=== PATIENT | female | born 1990 | race Caucasian/White ===

== ENCOUNTER 2018-05-09 13:48 | Inpatient (IN) | payer OTHER ==
[2018-05-09] MEDS ORDERED: Sodium Chloride 0.9% 1,000 ML IV SCH ×2 (15:15→17:30)
--- NOTE | 2018-05-09 15:17 | EDM.PDOC ---
ED HPI GENERAL MEDICAL PROBLEM - General Chief Complaint: Fever Stated Complaint: BACK PAIN POST DELIVERY Time Seen by Provider: 05/09/18 14:11 Source of Information: Reports: Patient, RN Notes Reviewed - History of Present Illness INITIAL COMMENTS - FREE TEXT/NARRATIVE: 27-year-old female comes in with fever, chills that started today about 5 hours ago. She is 4 days , discharge home with her baby 2 days ago. She states the delivery was "long" but otherwise went okay. she did develop some low back pain last evening that continues this today. She states that she does not have much control over her bladder, that when she feels the need to void, stands up there is incontinence, unable to get to the bathroom without leakage. She believes her flow has been relatively normal, a couple of clots but nothing excessive. She does have some lower pelvic and abdominal discomfort but in her mind not unusual or excessive for just delivering a baby 4 days ago. She denies nasal or sinus congestion sore throat cough. 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: - Past Surgical History HEENT Surgical History: Reports: Oral Surgery Musculoskeletal Surgical History: Reports: Other (See Below) Social & Family History - Family History Family Medical History: Noncontributory - Tobacco Use Smoking Status *Q: Never Smoker Second Hand Smoke Exposure: No - Caffeine Use Caffeine Use: Reports: Coffee - Recreational Drug Use Recreational Drug Use: No ED ROS GENERAL - Review of Systems Review Of Systems: See Below Constitutional: Reports: Fever, Chills HEENT: Denies: Rhinitis, Sinus Problem, Throat Pain Respiratory: Denies: Shortness of Breath Cardiovascular: Denies: Chest Pain GI/Abdominal: Reports: Abdominal Pain (Mild lower mid and mid abdominal discomfort). Denies: Nausea, Vomiting : Reports: Frequency, Urgency, Other (Loss of control) Musculoskeletal: Reports: Back Pain Skin: Denies: Rash Neurological: Reports: Dizziness. Denies: Trouble Speaking, Difficulty Walking , Weakness ED EXAM, GENERAL - Physical Exam Exam: See Below General Appearance: Alert, No Apparent Distress Eye Exam: Bilateral Eye: PERRL Throat/Mouth: Normal Inspection, Normal Oropharynx Head: Atraumatic. No: Facial Swelling Neck: Supple, Full Range of Motion Respiratory/Chest: No Respiratory Distress, Lungs Clear, Normal Breath Sounds. No: Rhonchi, Wheezing Cardiovascular: Tachycardia GI/Abdominal: Soft, Tender (Very mild tenderness lower mid pelvis and abdomen). No: Guarding, Rebound Back Exam: CVA Tenderness (L), CVA Tenderness (R), Other (Mild bilat low back tenderness) Extremities: Normal Inspection. No: Pedal Edema, Leg Pain Neurological: Alert, Oriented, No Motor/Sensory Deficits Skin Exam: Warm, Dry, Normal Color Course - Vital Signs Last Recorded V/S: Last Vital Signs Temp 101.5 F H 05/09/18 16:00 Pulse 114 H 05/09/18 16:00 Resp 26 H 05/09/18 16:00 BP 111/62 05/09/18 16:00 Pulse Ox 99 05/09/18 16:00 - Orders/Labs/Meds Orders: Active Orders 24 hr Category Date Time Status Chest 1V Frontal [CR] Stat Exams 05/09/18 14:37 Taken CULTURE BLOOD [BC] Stat Lab 05/09/18 14:50 Received CULTURE BLOOD [BC] Stat Lab 05/09/18 15:25 Received CULTURE URINE [RM] Stat Lab 05/09/18 16:05 Received Sodium Chloride 0.9% [Normal Saline] 1,000 ml Med 05/09/18 15:15 Active IV ONETIME Sodium Chloride 0.9% [Normal Saline] 1,000 ml Med 05/09/18 17:30 Active IV ONETIME cefTRIAXone [Rocephin] 2 gm Med 05/09/18 15:30 Active Sodium Chloride 0.9% [Normal Saline] 100 ml IV Q24H Medication Orders Sodium Chloride (Normal Saline) 1,000 mls @ 999 mls/hr IV ONETIME DINO Last Admin: 05/09/18 15:35 Dose: 999 mls/hr Ceftriaxone Sodium 2 gm/ (Sodium Chloride) 100 mls @ 200 mls/hr IV Q24H DINO Last Admin: 05/09/18 15:35 Dose: 200 mls/hr Sodium Chloride (Normal Saline) 1,000 mls @ 999 mls/hr IV ONETIME DINO Last Admin: 05/09/18 17:25 Dose: 999 mls/hr Labs: Laboratory Tests 05/09/18 05/09/18 05/09/18 Range/Units 14:50 14:50 14:50 WBC 14.18 H (3.98-10.04) K/mm3 RBC 3.55 L (3.98-5.22) M/mm3 Hgb 10.2 L (11.2-15.7) gm/L Hct 31.6 L (34.1-44.9) % MCV 89.0 (79.4-94.8) fl MCH 28.7 (25.6-32.2) pg MCHC 32.3 (32.2-35.5) g/dl RDW Std Deviation 45.3 (36.4-46.3) fL Plt Count 320 (182-369) K/mm3 MPV 9.4 (9.4-12.3) fl Neutrophils % (Manual) 92 H (40-60) % Band Neutrophils % 0 (0-10) % Lymphocytes % (Manual) 6 L (20-40) % Atypical Lymphs % 0 % Monocytes % (Manual) 2 (2-10) % Eosinophils % (Manual) 0 L (0.7-5.8) % Basophils % (Manual) 0 L (0.1-1.2) Toxic Granulation 2+ moderate Platelet Estimate Adequate Plt Morphology Comment Normal Anisocytosis 1+ slight RBC Morph Comment Not Reportable Sodium 136 (136-145) mEq/L Potassium 3.2 L (3.5-5.1) mEq/L Chloride 101 (98-107) mEq/L Carbon Dioxide 21 (21-32) mEq/L Anion Gap 17.2 H (5-15) BUN 11 (7-18) mg/dL Creatinine 0.9 (0.55-1.02) mg/dL Est Cr Clr Drug Dosing 93.04 mL/min Estimated GFR (MDRD) > 60 (>60) mL/min BUN/Creatinine Ratio 12.2 L (14-18) Glucose 101 (74-106) mg/dL Lactic Acid 1.7 (0.4-2.0) mmol/L Calcium 9.0 (8.5-10.1) mg/dL Total Bilirubin 0.3 (0.2-1.0) mg/dL AST 23 (15-37) U/L ALT 26 (14-59) U/L Alkaline Phosphatase 129 H (46-116) U/L C-Reactive Protein 6.7 H* (<1.0) mg/dL Total Protein 7.2 (6.4-8.2) g/dl Albumin 2.6 L (3.4-5.0) g/dl Globulin 4.6 gm/dL Albumin/Globulin Ratio 0.6 L (1-2) Urine Color (Yellow) Urine Appearance (Clear) Urine pH (5.0-8.0) Ur Specific Bim (1.005-1.030) Urine Protein (Negative) Urine Glucose (UA) (Negative) Urine Ketones (Negative) Urine Occult Blood (Negative) Urine Nitrite (Negative) Urine Bilirubin (Negative) Urine Urobilinogen (0.2-1.0) Ur Leukocyte Esterase (Negative) Urine RBC (0-5) /hpf Urine WBC (0-5) /hpf Ur Epithelial Cells (0-5) /hpf Urine Bacteria (FEW) /hpf Urine Mucus (FEW) /hpf 05/09/18 Range/Units 16:05 WBC (3.98-10.04) K/mm3 RBC (3.98-5.22) M/mm3 Hgb (11.2-15.7) gm/L Hct (34.1-44.9) % MCV (79.4-94.8) fl MCH (25.6-32.2) pg MCHC (32.2-35.5) g/dl RDW Std Deviation (36.4-46.3) fL Plt Count (182-369) K/mm3 MPV (9.4-12.3) fl Neutrophils % (Manual) (40-60) % Band Neutrophils % (0-10) % Lymphocytes % (Manual) (20-40) % Atypical Lymphs % % Monocytes % (Manual) (2-10) % Eosinophils % (Manual) (0.7-5.8) % Basophils % (Manual) (0.1-1.2) Toxic Granulation Platelet Estimate Plt Morphology Comment Anisocytosis RBC Morph Comment Sodium (136-145) mEq/L Potassium (3.5-5.1) mEq/L Chloride (98-107) mEq/L Carbon Dioxide (21-32) mEq/L Anion Gap (5-15) BUN (7-18) mg/dL Creatinine (0.55-1.02) mg/dL Est Cr Clr Drug Dosing mL/min Estimated GFR (MDRD) (>60) mL/min BUN/Creatinine Ratio (14-18) Glucose (74-106) mg/dL Lactic Acid (0.4-2.0) mmol/L Calcium (8.5-10.1) mg/dL Total Bilirubin (0.2-1.0) mg/dL AST (15-37) U/L ALT (14-59) U/L Alkaline Phosphatase (46-116) U/L C-Reactive Protein (<1.0) mg/dL Total Protein (6.4-8.2) g/dl Albumin (3.4-5.0) g/dl Globulin gm/dL Albumin/Globulin Ratio (1-2) Urine Color Yellow (Yellow) Urine Appearance Slt cloudy H (Clear) Urine pH 6.5 (5.0-8.0) Ur Specific Bim 1.015 (1.005-1.030) Urine Protein 1+ H (Negative) Urine Glucose (UA) Negative (Negative) Urine Ketones Negative (Negative) Urine Occult Blood 2+ H (Negative) Urine Nitrite Positive H (Negative) Urine Bilirubin Negative (Negative) Urine Urobilinogen 0.2 (0.2-1.0) Ur Leukocyte Esterase 2+ H (Negative) Urine RBC 10-20 H (0-5) /hpf Urine WBC 40-50 H (0-5) /hpf Ur Epithelial Cells 0-5 (0-5) /hpf Urine Bacteria Moderate H (FEW) /hpf Urine Mucus Not seen (FEW) /hpf Meds: Medications Generic Name Dose Route Start Last Admin Trade Name Freq PRN Reason Stop Dose Admin Sodium Chloride 1,000 mls @ 999 mls/hr 05/09/18 15:15 05/09/18 15:35 Normal Saline IV 999 mls/hr ONETIME DINO Administration Ceftriaxone Sodium 2 gm/ 100 mls @ 200 mls/hr 05/09/18 15:30 05/09/18 15:35 Sodium Chloride IV 200 mls/hr Q24H DINO Administration Sodium Chloride 1,000 mls @ 999 mls/hr 05/09/18 17:30 05/09/18 17:25 Normal Saline IV 999 mls/hr ONETIME DINO Administration Discontinued Medications Generic Name Dose Route Start Last Admin Trade Name Lyle PRChristelle Reason Stop Dose Admin Acetaminophen 975 mg 05/09/18 17:20 Tylenol PO 05/09/18 17:21 NOW ONE Acetaminophen Confirm 05/09/18 17:22 Tylenol Administered 05/09/18 17:23 Dose 975 mg .ROUTE .STK-MED ONE Ceftriaxone Sodium Confirm 05/09/18 15:26 05/09/18 15:33 Rocephin Administered 05/09/18 15:27 Not Given Dose 2 gm .ROUTE .STK-MED ONE Ceftriaxone Sodium Confirm 05/09/18 15:29 05/09/18 15:35 Rocephin Administered 05/09/18 15:30 Not Given Dose 2 gm IV .STK-MED ONE Ceftriaxone Sodium 2 gm/ 100 mls @ 200 mls/hr 05/09/18 15:18 05/09/18 15:33 Sodium Chloride IV 05/09/18 15:47 Not Given ONETIME ONE Sodium Chloride Confirm 05/09/18 15:30 05/09/18 15:35 Normal Saline Administered 05/09/18 15:31 Not Given Dose 100 mls @ as directed .ROUTE .STK-MED ONE Sodium Chloride Confirm 05/09/18 17:21 05/09/18 17:28 Normal Saline Administered 05/09/18 17:22 Not Given Dose 1,000 mls @ as directed .ROUTE .STK-MED ONE - Re-Assessments/Exams Free Text/Narrative Re-Assessment/Exam: 05/09/18 17:03. We did draw blood cultures 2 on admission. White blood count has come back at 14,000, around 90 segs. She does have low back pain as noted and some tenderness bilateral low back, with her fever chills tachycardia she likely does have an early pyelonephritis, rule out sepsis. We have given Rocephin 2 g IV. Urine is quite strongly positive for infection. Urine culture will be ordered at this time. Of note lactic acid OK at 1.7. She will be admitted for further treatment. Departure - Departure Time of Disposition: 17:00 Disposition: Admitted As Inpatient 64 Condition: Fair Clinical Impression: Pyelonephritis - Discharge Information Referrals: Taina Kimball MD [Primary Care Provider] - Forms: ED Department Discharge ED Communication - Discussed Case With (1) Discussed Case With (1): Admitting Provider (Dr Kimball, decision to admit at about 17:00.) - My Orders Last 24 Hours: My Active Orders 05/09/18 14:37 Chest 1V Frontal [CR] Stat 05/09/18 14:50 CULTURE BLOOD [BC] Stat 05/09/18 15:15 Sodium Chloride 0.9% [Normal Saline] 1,000 ml IV ONETIME 05/09/18 15:25 CULTURE BLOOD [BC] Stat 05/09/18 15:30 cefTRIAXone [Rocephin] 2 gm Sodium Chloride 0.9% [Normal Saline] 100 ml IV Q24H 05/09/18 16:05 CULTURE URINE [RM] Stat 05/09/18 17:30 Sodium Chloride 0.9% [Normal Saline] 1,000 ml IV ONETIME - Assessment/Plan Last 24 Hours: My Active Orders 05/09/18 14:37 Chest 1V Frontal [CR] Stat 05/09/18 14:50 CULTURE BLOOD [BC] Stat 05/09/18 15:15 Sodium Chloride 0.9% [Normal Saline] 1,000 ml IV ONETIME 05/09/18 15:25 CULTURE BLOOD [BC] Stat 05/09/18 15:30 cefTRIAXone [Rocephin] 2 gm Sodium Chloride 0.9% [Normal Saline] 100 ml IV Q24H 05/09/18 16:05 CULTURE URINE [RM] Stat 05/09/18 17:30 Sodium Chloride 0.9% [Normal Saline] 1,000 ml IV ONETIME
[2018-05-09] MEDS ORDERED: cefTRIAXone 2 GM in Sodium Chloride 0.9% 100 ML IV ONE (15:18)
[2018-05-09] MEDS ORDERED: cefTRIAXone 2 GM Vial ONE (15:26)
[2018-05-09] MEDS ORDERED: cefTRIAXone 2 GM AdvVial IV ONE (15:29)
[2018-05-09] MEDS ORDERED: cefTRIAXone 2 GM in Sodium Chloride 0.9% 100 ML IV SCH (15:30)
[2018-05-09] MEDS ORDERED: Sodium Chloride 0.9% 100 ML ONE (15:30)
[2018-05-09] MEDS ORDERED: Acetaminophen 325 MG Tab PO ONE (17:20)
[2018-05-09] MEDS ORDERED: Sodium Chloride 0.9% 1,000 ML ONE (17:21)
[2018-05-09] MEDS ORDERED: Acetaminophen 325 MG Tab ONE (17:22)
[2018-05-09] MEDS ORDERED: Ibuprofen 400 MG Tab PO PRN (17:39)
[2018-05-09] MEDS ORDERED: Ondansetron 4 MG/2 ML SDV IVPUSH PRN (17:39)
--- NOTE | 2018-05-09 17:44 | PCM.HP ---
H&P History of Present Illness - General Date of Service: 05/09/18 Admit Problem/Dx: Admission Diagnosis/Problem Admission Diagnosis/Problem Pyelonephritis Source of Information: Patient History Limitations: Reports: No Limitations - History of Present Illness Initial Comments - Free Text/Narative: Patient is a 27 y/o who is [facility] after IOL for gestational HTN. States that last night she started to notice some back pain, but didn't think much of this. Today around 1000 was feeding her son when she noted she was feeling warm/unwell. Took her temperature and was elevated. Presented to ER after calling into L&D for advise. In ER had lab work showing an elevated WBC and CRP. UA with positive nitrates. Febrile and tachycardic in ER. Presumed to be pyelonephritis and so ceftriaxone started. Just received dose fo Tylenol. Still feeling shaking/chills. No other URI or abdominal pain symptoms. Denies heaviness to bleeding. Middle Back Pain Score (Numeric/FACES): 6 - Related Data Allergies/Adverse Reactions: Allergies Allergy/AdvReac Type Severity Reaction Status Date / Time No Known Allergies Allergy Verified 05/09/18 14:00 Home Medications: Home Meds Docusate Sodium [Colace] 100 mg PO BID PRN cap 05/06/18 [Rx] Ibuprofen [Motrin] 600 mg PO Q6H PRN tablet 05/06/18 [Rx] Past Medical History Cardiovascular History: Reports: Other (See Below) (Gestational HTN) : 1 Para: 1 - Past Surgical History HEENT Surgical History: Reports: Oral Surgery Musculoskeletal Surgical History: Reports: Other (See Below) Social & Family History - Family History Family Medical History: Noncontributory - Tobacco Use Smoking Status *Q: Never Smoker Second Hand Smoke Exposure: No - Caffeine Use Caffeine Use: Reports: Coffee - Alcohol Use Alcohol Use History: No - Recreational Drug Use Recreational Drug Use: No H&P Review of Systems - Review of Systems: Review Of Systems: See Below General: Reports: Chills, Malaise Pulmonary: Reports: No Symptoms Cardiovascular: Reports: No Symptoms Gastrointestinal: Reports: No Symptoms Genitourinary: Reports: Other (Difficulty starting stream of urine) Musculoskeletal: Reports: Back Pain Neurological: Reports: No Symptoms Exam - Exam Exam: See Below - Vital Signs Vital Signs: Last Vital Signs Temp 39.3 C H 05/09/18 17:30 Pulse 111 H 05/09/18 17:30 Resp 32 H 05/09/18 17:30 BP 124/75 05/09/18 17:30 Pulse Ox 100 05/09/18 17:30 Weight: 86.183 kg - Exam General: Alert, Oriented, Mild Distress Lungs: Clear to Auscultation, Normal Respiratory Effort Cardiovascular: Regular Rhythm, Tachycardia GI/Abdominal Exam: Soft, Non-Tender Back Exam: Normal Inspection, CVA Tenderness (L) (mild), CVA Tenderness (R) ( mild) Extremities: Normal Inspection Skin: Warm, Dry, Intact - Patient Data Lab Results Last 24 hrs: Laboratory Results - last 24 hr 05/09/18 05/09/18 05/09/18 Range/Units 14:50 14:50 14:50 WBC 14.18 H (3.98-10.04) K/mm3 RBC 3.55 L (3.98-5.22) M/mm3 Hgb 10.2 L (11.2-15.7) gm/L Hct 31.6 L (34.1-44.9) % MCV 89.0 (79.4-94.8) fl MCH 28.7 (25.6-32.2) pg MCHC 32.3 (32.2-35.5) g/dl RDW Std Deviation 45.3 (36.4-46.3) fL Plt Count 320 (182-369) K/mm3 MPV 9.4 (9.4-12.3) fl Neutrophils % (Manual) 92 H (40-60) % Band Neutrophils % 0 (0-10) % Lymphocytes % (Manual) 6 L (20-40) % Atypical Lymphs % 0 % Monocytes % (Manual) 2 (2-10) % Eosinophils % (Manual) 0 L (0.7-5.8) % Basophils % (Manual) 0 L (0.1-1.2) Toxic Granulation 2+ moderate Platelet Estimate Adequate Plt Morphology Comment Normal Anisocytosis 1+ slight RBC Morph Comment Not Reportable Sodium 136 (136-145) mEq/L Potassium 3.2 L (3.5-5.1) mEq/L Chloride 101 (98-107) mEq/L Carbon Dioxide 21 (21-32) mEq/L Anion Gap 17.2 H (5-15) BUN 11 (7-18) mg/dL Creatinine 0.9 (0.55-1.02) mg/dL Est Cr Clr Drug Dosing 93.04 mL/min Estimated GFR (MDRD) > 60 (>60) mL/min BUN/Creatinine Ratio 12.2 L (14-18) Glucose 101 (74-106) mg/dL Lactic Acid 1.7 (0.4-2.0) mmol/L Calcium 9.0 (8.5-10.1) mg/dL Total Bilirubin 0.3 (0.2-1.0) mg/dL AST 23 (15-37) U/L ALT 26 (14-59) U/L Alkaline Phosphatase 129 H (46-116) U/L C-Reactive Protein 6.7 H* (<1.0) mg/dL Total Protein 7.2 (6.4-8.2) g/dl Albumin 2.6 L (3.4-5.0) g/dl Globulin 4.6 gm/dL Albumin/Globulin Ratio 0.6 L (1-2) Urine Color (Yellow) Urine Appearance (Clear) Urine pH (5.0-8.0) Ur Specific [place] (1.005-1.030) Urine Protein (Negative) Urine Glucose (UA) (Negative) Urine Ketones (Negative) Urine Occult Blood (Negative) Urine Nitrite (Negative) Urine Bilirubin (Negative) Urine Urobilinogen (0.2-1.0) Ur Leukocyte Esterase (Negative) Urine RBC (0-5) /hpf Urine WBC (0-5) /hpf Ur Epithelial Cells (0-5) /hpf Urine Bacteria (FEW) /hpf Urine Mucus (FEW) /hpf 05/09/18 Range/Units 16:05 WBC (3.98-10.04) K/mm3 RBC (3.98-5.22) M/mm3 Hgb (11.2-15.7) gm/L Hct (34.1-44.9) % MCV (79.4-94.8) fl MCH (25.6-32.2) pg MCHC (32.2-35.5) g/dl RDW Std Deviation (36.4-46.3) fL Plt Count (182-369) K/mm3 MPV (9.4-12.3) fl Neutrophils % (Manual) (40-60) % Band Neutrophils % (0-10) % Lymphocytes % (Manual) (20-40) % Atypical Lymphs % % Monocytes % (Manual) (2-10) % Eosinophils % (Manual) (0.7-5.8) % Basophils % (Manual) (0.1-1.2) Toxic Granulation Platelet Estimate Plt Morphology Comment Anisocytosis RBC Morph Comment Sodium (136-145) mEq/L Potassium (3.5-5.1) mEq/L Chloride (98-107) mEq/L Carbon Dioxide (21-32) mEq/L Anion Gap (5-15) BUN (7-18) mg/dL Creatinine (0.55-1.02) mg/dL Est Cr Clr Drug Dosing mL/min Estimated GFR (MDRD) (>60) mL/min BUN/Creatinine Ratio (14-18) Glucose (74-106) mg/dL Lactic Acid (0.4-2.0) mmol/L Calcium (8.5-10.1) mg/dL Total Bilirubin (0.2-1.0) mg/dL AST (15-37) U/L ALT (14-59) U/L Alkaline Phosphatase (46-116) U/L C-Reactive Protein (<1.0) mg/dL Total Protein (6.4-8.2) g/dl Albumin (3.4-5.0) g/dl Globulin gm/dL Albumin/Globulin Ratio (1-2) Urine Color Yellow (Yellow) Urine Appearance Slt cloudy H (Clear) Urine pH 6.5 (5.0-8.0) Ur Specific [place] 1.015 (1.005-1.030) Urine Protein 1+ H (Negative) Urine Glucose (UA) Negative (Negative) Urine Ketones Negative (Negative) Urine Occult Blood 2+ H (Negative) Urine Nitrite Positive H (Negative) Urine Bilirubin Negative (Negative) Urine Urobilinogen 0.2 (0.2-1.0) Ur Leukocyte Esterase 2+ H (Negative) Urine RBC 10-20 H (0-5) /hpf Urine WBC 40-50 H (0-5) /hpf Ur Epithelial Cells 0-5 (0-5) /hpf Urine Bacteria Moderate H (FEW) /hpf Urine Mucus Not seen (FEW) /hpf Result Diagrams: 05/09/18 14:50 05/09/18 14:50 Kenan Results Last 24 hrs: Microbiology 05/09/18 15:35 Influenza Type A Antigen Screen - Final Nasopharyngeal Swab NEGATIVE INFLUENZA A VIRUS AG Influenza Type B Antigen Screen - Final NEGATIVE INFLUENZA B VIRUS AG - Problem List (1) fever, current hospitalization SNOMED Code(s): 330978264, [id number] ICD Code: O86.4 - PYREXIA OF UNKNOWN ORIGIN FOLLOWING DELIVERY Status: Acute Current Visit: Yes (2) Pyelonephritis SNOMED Code(s): 27176197 ICD Code: N12 - TUBULO-INTERSTITIAL NEPHRITIS, NOT SPCF ACUTE OR CHRONIC Status: Acute Current Visit: Yes Problem List Initiated/Reviewed/Updated: Yes Orders Last 24hrs: Active Orders 24 hr Category Date Time Status Admission Status [Patient Status] [ADT] Routine ADT 05/09/18 17:30 Active May Shower [RC] ASDIRECTED Care 05/09/18 17:39 Ordered Notify Provider Vital Signs [RC] ASDIRECTED Care 05/09/18 17:40 Ordered Up ad Nikki [RC] PER UNIT ROUTINE Care 05/09/18 17:40 Ordered Vital Signs [RC] Q4HR Care 05/09/18 17:39 Ordered Regular Diet [DIET] Diet 05/09/18 Dinner Ordered Chest 1V Frontal [CR] Stat Exams 05/09/18 14:37 Taken BASIC METABOLIC PANEL,BMP [CHEM] AM Lab 05/10/18 05:11 Ordered CBC W/O DIFF,HEMOGRAM [HEME] AM Lab 05/10/18 05:11 Ordered CULTURE BLOOD [BC] Stat Lab 05/09/18 14:50 Received CULTURE BLOOD [BC] Stat Lab 05/09/18 15:25 Received CULTURE URINE [RM] Stat Lab 05/09/18 16:05 Received Acetaminophen [Tylenol] Med 05/09/18 17:39 Ordered 650 mg PO Q4H PRN Ibuprofen [Motrin] Med 05/09/18 17:39 Ordered 600 mg PO Q6H PRN Ondansetron [Zofran] Med 05/09/18 17:39 Ordered 4 mg IVPUSH Q4H PRN Sodium Chloride 0.9% @ 125 MLS/HR (1000ml) Med 05/09/18 17:45 Ordered Sodium Chloride 0.9% [Normal Saline] 1,000 ml IV ASDIRECTED Sodium Chloride 0.9% [Normal Saline] 1,000 ml Med 05/09/18 15:15 Active IV ONETIME Sodium Chloride 0.9% [Normal Saline] 1,000 ml Med 05/09/18 17:30 Active IV ONETIME cefTRIAXone [Rocephin] 2 gm Med 05/09/18 15:30 Active Sodium Chloride 0.9% [Normal Saline] 100 ml IV Q24H Resuscitation Status Routine Resus Stat 05/09/18 17:39 Ordered Medication Orders Acetaminophen (Tylenol) 650 mg PO Q4H PRN PRN Reason: Fever Sodium Chloride (Normal Saline) 1,000 mls @ 999 mls/hr IV ONETIME [facility] Last Admin: 05/09/18 15:35 Dose: 999 mls/hr Ceftriaxone Sodium 2 gm/ (Sodium Chloride) 100 mls @ 200 mls/hr IV Q24H DINO Last Admin: 05/09/18 15:35 Dose: 200 mls/hr Sodium Chloride (Normal Saline) 1,000 mls @ 999 mls/hr IV ONETIME [facility] Last Admin: 05/09/18 17:25 Dose: 999 mls/hr Sodium Chloride (Normal Saline) 1,000 mls @ 125 mls/hr IV ASDIRECTED DINO Ibuprofen (Motrin) 600 mg PO Q6H PRN PRN Reason: Pain (mild 1-3) Ondansetron HCl (Zofran) 4 mg IVPUSH Q4H PRN PRN Reason: Nausea/Vomiting Assessment/Plan Comment:: 27 y/o PPD#4 from [facility] being seen in ED for concerns of fever. * UA does show nitrates likely consistent with UTI/pyelonephritis. Urine culture and blood cultures pending from ED. Has received first dose of Ceftriaxone in ED. Will continue q 24 hrs. If patient doesn't respond as anticipated may want to expand coverage for possible endometritis although this seems less likely given exam and lab findings. Tylenol and ibuprofen for pain/ fever. Continue IVF @ 125 cc/hr. Repeat labs in AM. * Has had negative influenza testing. ED CXR is pending.
[2018-05-09] MEDS ORDERED: Sodium Chloride 0.9% 1,000 ML IV ONE (18:00)
[2018-05-09] MEDS: Ibuprofen 600 MG Tab PO PRN (18:49)
[2018-05-09] MEDS: Sodium Chloride 0.9% 1,000 ML IV SCH (18:50)
[2018-05-09] MEDS: Acetaminophen 325 MG Tab PO PRN (23:49)
[2018-05-10] MEDS: Ibuprofen 600 MG Tab PO PRN ×3 (01:03→16:25)
[2018-05-10] MEDS: Sodium Chloride 0.9% 1,000 ML IV SCH ×2 (02:50→17:34)
[2018-05-10] MEDS ORDERED: HYDROmorphone 2 MG Tab PO PRN (02:58)
--- NOTE | 2018-05-10 06:09 | PCM.PN ---
- General Info Date of Service: 05/10/18 Subjective Update: Patient overall feeling slightly improved. Still having pain in her back. Now more present on right than bilaterally like last night. No shaking chills/ fever overnight - Review of Systems General: Reports: Fatigue Pulmonary: Reports: No Symptoms Cardiovascular: Reports: No Symptoms Gastrointestinal: Reports: No Symptoms. Denies: Abdominal Pain Genitourinary: Reports: Flank Pain (right sided) Musculoskeletal: Reports: No Symptoms - Patient Data Vitals - Most Recent: Last Vital Signs Temp 37.6 C 05/10/18 02:03 Pulse 110 H 05/09/18 23:54 Resp 17 05/09/18 23:53 BP 127/94 H 05/09/18 23:53 Pulse Ox 94 L 05/09/18 23:54 Weight - Most Recent: 86.636 kg I&O - Last 24 Hours: Intake & Output 05/09/18 05/09/18 05/10/18 14:59 22:59 06:59 Intake Total 1000 Balance 1000 Lab Results Last 24 Hours: Laboratory Results - last 24 hr 05/09/18 05/09/18 05/09/18 Range/Units 14:50 14:50 14:50 WBC 14.18 H (3.98-10.04) K/mm3 RBC 3.55 L (3.98-5.22) M/mm3 Hgb 10.2 L (11.2-15.7) gm/L Hct 31.6 L (34.1-44.9) % MCV 89.0 (79.4-94.8) fl MCH 28.7 (25.6-32.2) pg MCHC 32.3 (32.2-35.5) g/dl RDW Std Deviation 45.3 (36.4-46.3) fL Plt Count 320 (182-369) K/mm3 MPV 9.4 (9.4-12.3) fl Neutrophils % (Manual) 92 H (40-60) % Band Neutrophils % 0 (0-10) % Lymphocytes % (Manual) 6 L (20-40) % Atypical Lymphs % 0 % Monocytes % (Manual) 2 (2-10) % Eosinophils % (Manual) 0 L (0.7-5.8) % Basophils % (Manual) 0 L (0.1-1.2) Toxic Granulation 2+ moderate Platelet Estimate Adequate Plt Morphology Comment Normal Anisocytosis 1+ slight RBC Morph Comment Not Reportable Sodium 136 (136-145) mEq/L Potassium 3.2 L (3.5-5.1) mEq/L Chloride 101 (98-107) mEq/L Carbon Dioxide 21 (21-32) mEq/L Anion Gap 17.2 H (5-15) BUN 11 (7-18) mg/dL Creatinine 0.9 (0.55-1.02) mg/dL Est Cr Clr Drug Dosing 93.04 mL/min Estimated GFR (MDRD) > 60 (>60) mL/min BUN/Creatinine Ratio 12.2 L (14-18) Glucose 101 (74-106) mg/dL Lactic Acid 1.7 (0.4-2.0) mmol/L Calcium 9.0 (8.5-10.1) mg/dL Total Bilirubin 0.3 (0.2-1.0) mg/dL AST 23 (15-37) U/L ALT 26 (14-59) U/L Alkaline Phosphatase 129 H (46-116) U/L C-Reactive Protein 6.7 H* (<1.0) mg/dL Total Protein 7.2 (6.4-8.2) g/dl Albumin 2.6 L (3.4-5.0) g/dl Globulin 4.6 gm/dL Albumin/Globulin Ratio 0.6 L (1-2) Urine Color (Yellow) Urine Appearance (Clear) Urine pH (5.0-8.0) Ur Specific Winter (1.005-1.030) Urine Protein (Negative) Urine Glucose (UA) (Negative) Urine Ketones (Negative) Urine Occult Blood (Negative) Urine Nitrite (Negative) Urine Bilirubin (Negative) Urine Urobilinogen (0.2-1.0) Ur Leukocyte Esterase (Negative) Urine RBC (0-5) /hpf Urine WBC (0-5) /hpf Ur Epithelial Cells (0-5) /hpf Urine Bacteria (FEW) /hpf Urine Mucus (FEW) /hpf 05/09/18 05/10/18 Range/Units 16:05 05:35 WBC 13.81 H (3.98-10.04) K/mm3 RBC 3.26 L (3.98-5.22) M/mm3 Hgb 9.4 L (11.2-15.7) gm/L Hct 29.1 L (34.1-44.9) % MCV 89.3 (79.4-94.8) fl MCH 28.8 (25.6-32.2) pg MCHC 32.3 (32.2-35.5) g/dl RDW Std Deviation 45.5 (36.4-46.3) fL Plt Count 293 (182-369) K/mm3 MPV 9.1 L (9.4-12.3) fl Neutrophils % (Manual) (40-60) % Band Neutrophils % (0-10) % Lymphocytes % (Manual) (20-40) % Atypical Lymphs % % Monocytes % (Manual) (2-10) % Eosinophils % (Manual) (0.7-5.8) % Basophils % (Manual) (0.1-1.2) Toxic Granulation Platelet Estimate Plt Morphology Comment Anisocytosis RBC Morph Comment Sodium (136-145) mEq/L Potassium (3.5-5.1) mEq/L Chloride (98-107) mEq/L Carbon Dioxide (21-32) mEq/L Anion Gap (5-15) BUN (7-18) mg/dL Creatinine (0.55-1.02) mg/dL Est Cr Clr Drug Dosing mL/min Estimated GFR (MDRD) (>60) mL/min BUN/Creatinine Ratio (14-18) Glucose (74-106) mg/dL Lactic Acid (0.4-2.0) mmol/L Calcium (8.5-10.1) mg/dL Total Bilirubin (0.2-1.0) mg/dL AST (15-37) U/L ALT (14-59) U/L Alkaline Phosphatase (46-116) U/L C-Reactive Protein (<1.0) mg/dL Total Protein (6.4-8.2) g/dl Albumin (3.4-5.0) g/dl Globulin gm/dL Albumin/Globulin Ratio (1-2) Urine Color Yellow (Yellow) Urine Appearance Slt cloudy H (Clear) Urine pH 6.5 (5.0-8.0) Ur Specific Winter 1.015 (1.005-1.030) Urine Protein 1+ H (Negative) Urine Glucose (UA) Negative (Negative) Urine Ketones Negative (Negative) Urine Occult Blood 2+ H (Negative) Urine Nitrite Positive H (Negative) Urine Bilirubin Negative (Negative) Urine Urobilinogen 0.2 (0.2-1.0) Ur Leukocyte Esterase 2+ H (Negative) Urine RBC 10-20 H (0-5) /hpf Urine WBC 40-50 H (0-5) /hpf Ur Epithelial Cells 0-5 (0-5) /hpf Urine Bacteria Moderate H (FEW) /hpf Urine Mucus Not seen (FEW) /hpf Kenan Results Last 24 Hours: Microbiology 05/09/18 15:35 Influenza Type A Antigen Screen - Final Nasopharyngeal Swab NEGATIVE INFLUENZA A VIRUS AG Influenza Type B Antigen Screen - Final NEGATIVE INFLUENZA B VIRUS AG Med Orders - Current: Current Medications Acetaminophen (Tylenol) 650 mg PO Q4H PRN PRN Reason: Fever Last Admin: 05/09/18 23:49 Dose: 650 mg Hydromorphone HCl (Dilaudid) 2 mg PO ONETIME PRN PRN Reason: Pain (moderate 4-6) Stop: 05/11/18 02:59 Sodium Chloride (Normal Saline) 1,000 mls @ 125 mls/hr IV ASDIRECTED DINO Last Admin: 05/10/18 02:50 Dose: 125 mls/hr Ceftriaxone Sodium 1 gm/ (Sodium Chloride) 100 mls @ 200 mls/hr IV Q24H DINO Ibuprofen (Motrin) 600 mg PO Q6H PRN PRN Reason: Pain (mild 1-3) Last Admin: 05/10/18 01:03 Dose: 600 mg Ondansetron HCl (Zofran) 4 mg IVPUSH Q4H PRN PRN Reason: Nausea/Vomiting Discontinued Medications Acetaminophen (Tylenol) 975 mg PO NOW ONE Stop: 05/09/18 17:21 Last Admin: 05/09/18 17:30 Dose: 975 mg Acetaminophen (Tylenol) Confirm Administered Dose 975 mg .ROUTE .STK-MED ONE Stop: 05/09/18 17:23 Last Admin: 05/09/18 17:31 Dose: Not Given Ceftriaxone Sodium (Rocephin) Confirm Administered Dose 2 gm .ROUTE .STK-MED ONE Stop: 05/09/18 15:27 Last Admin: 05/09/18 15:33 Dose: Not Given Ceftriaxone Sodium (Rocephin) Confirm Administered Dose 2 gm IV .STK-MED ONE Stop: 05/09/18 15:30 Last Admin: 05/09/18 15:35 Dose: Not Given Sodium Chloride (Normal Saline) 1,000 mls @ 999 mls/hr IV ONETIME [facility] Last Admin: 05/09/18 15:35 Dose: 999 mls/hr Ceftriaxone Sodium 2 gm/ (Sodium Chloride) 100 mls @ 200 mls/hr IV ONETIME ONE Stop: 05/09/18 15:47 Last Admin: 05/09/18 15:33 Dose: Not Given Ceftriaxone Sodium 2 gm/ (Sodium Chloride) 100 mls @ 200 mls/hr IV Q24H DINO Last Admin: 05/09/18 15:35 Dose: 200 mls/hr Sodium Chloride (Normal Saline) Confirm Administered Dose 100 mls @ as directed .ROUTE .STK-MED ONE Stop: 05/09/18 15:31 Last Admin: 05/09/18 15:35 Dose: Not Given Sodium Chloride (Normal Saline) 1,000 mls @ 999 mls/hr IV ONETIME [facility] Last Admin: 05/09/18 17:25 Dose: 999 mls/hr Sodium Chloride (Normal Saline) Confirm Administered Dose 1,000 mls @ as directed .ROUTE .STK-MED ONE Stop: 05/09/18 17:22 Last Admin: 05/09/18 17:28 Dose: Not Given Sodium Chloride (Normal Saline) 1,000 mls @ 999 mls/hr IV ONETIME ONE Stop: 05/09/18 19:00 Last Admin: 05/09/18 18:38 Dose: Not Given Ibuprofen (Motrin) 600 mg PO Q6H PRN PRN Reason: Pain (mild 1-3) - Exam General: Alert, Oriented, Cooperative Lungs: Clear to Auscultation, Normal Respiratory Effort Cardiovascular: Regular Rhythm, Tachycardia GI/Abdominal Exam: Soft, Non-Tender Back Exam: CVA Tenderness (R) Extremities: Normal Inspection - Problem List & Annotations (1) fever, current hospitalization SNOMED Code(s): 337997301, 629038439 Code(s): O86.4 - PYREXIA OF UNKNOWN ORIGIN FOLLOWING DELIVERY Status: Acute Current Visit: Yes (2) Pyelonephritis SNOMED Code(s): 48397805 Code(s): N12 - TUBULO-INTERSTITIAL NEPHRITIS, NOT SPCF ACUTE OR CHRONIC Status: Acute Current Visit: Yes - Problem List Review Problem List Initiated/Reviewed/Updated: Yes - My Orders Last 24 Hours: My Active Orders 05/09/18 17:39 May Shower [RC] ASDIRECTED Acetaminophen [Tylenol] 650 mg PO Q4H PRN Ondansetron [Zofran] 4 mg IVPUSH Q4H PRN Resuscitation Status Routine 05/09/18 17:40 Notify Provider Vital Signs [RC] ASDIRECTED Up ad Nikki [RC] PER UNIT ROUTINE 05/09/18 17:45 Sodium Chloride 0.9% [Normal Saline] 1,000 ml IV ASDIRECTED 05/09/18 18:43 Ibuprofen [Motrin] 600 mg PO Q6H PRN 05/09/18 Dinner Regular Diet [DIET] 05/10/18 02:58 HYDROmorphone [Dilaudid] 2 mg PO ONETIME PRN 05/10/18 05:35 BASIC METABOLIC PANEL,BMP [CHEM] AM 05/10/18 15:00 cefTRIAXone [Rocephin] 1 gm Sodium Chloride 0.9% [Normal Saline] 100 ml IV Q24H - Assessment Assessment:: HD#2 - admit for Pyelonephritis - Plan Plan:: * UA does show nitrates likely consistent with UTI/pyelonephritis. Urine culture and blood cultures pending from ED. * Next dose of Ceftriaxone this PM at 1500 * Labs with slight improvement in CBC * Tylenol and ibuprofen for pain/fever. * Continue IVF @ 125 cc/hr. * Discharge home likely tomorrow
[2018-05-10] MEDS: Acetaminophen 325 MG Tab PO PRN ×2 (06:40→14:04)
[2018-05-10] MEDS ORDERED: cefTRIAXone 2 GM in Sodium Chloride 0.9% 100 ML IV SCH (15:00)
[2018-05-10] MEDS ORDERED: cefTRIAXone 1 GM in Sodium Chloride 0.9% 100 ML IV SCH (15:00)
[2018-05-10] MEDS ORDERED: Gentamicin 600 MG in Sodium Chloride 0.9% 100 ML IV ONE (16:58)
[2018-05-10] MEDS ORDERED: Piperacillin/Tazobactam 4.5 GM in Sodium Chloride 0.9% 100 ML IV SCH (17:00)
--- NOTE | 2018-05-10 17:06 | PCM.SN ---
- Free Text/Narrative Note: Called at 1630 that patient had fever to 38.7. She did receive her 2nd dose of 2 grams of ceftriaxone at 1500. Is noted to be growing GNR both in her urine and also in one blood culture. While previously doing well will now expand coverage as has had a new spike of fever. Will discontinue Ceftriaxone and instead start Cefepime and Gentamicin. Once sensitives return tomorrow will attempt to narrow coverage. Nursing asked to call with any fevers and to also have pharmacy contact me directly if any concerns with orders. Patient to continue breast feeding with above medications. Taina Kimball
[2018-05-10] MEDS: Cefepime 2 GM in Premix Bag 1 BAG IV SCH (17:35)
[2018-05-10] MEDS: HYDROmorphone 2 MG Tab PO PRN (17:42)
[2018-05-10] MEDS ORDERED: Piperacillin/Tazobactam 4.5 GM in Sodium Chloride 0.9% 100 ML IV ONE (18:00)
--- NOTE | 2018-05-10 18:27 | CR ---
Chest: Portable view of the chest was obtained. Comparison: No prior chest x-ray. Slight atelectasis is noted within the upper right lung. Lungs otherwise are clear. Heart size and mediastinum are within normal limits for portable technique. Bony structures are grossly intact. Impression: 1. Slight right upper lobe atelectasis. Nothing acute is otherwise seen on portable chest x-ray. Diagnostic code #2
[2018-05-11] MEDS: Ibuprofen 600 MG Tab PO PRN ×4 (00:09→22:42)
[2018-05-11] MEDS: HYDROmorphone 2 MG Tab PO PRN ×3 (00:51→17:40)
[2018-05-11] MEDS: Cefepime 2 GM in Premix Bag 1 BAG IV SCH ×3 (01:43→17:04)
[2018-05-11] MEDS: Sodium Chloride 0.9% 1,000 ML IV SCH ×3 (05:52→21:11)
--- NOTE | 2018-05-11 06:47 | PCM.PN ---
- General Info Date of Service: 05/11/18 Functional Status: Reports: Pain Controlled, Tolerating Diet, Ambulating, Urinating - Review of Systems Pulmonary: Reports: No Symptoms Cardiovascular: Reports: No Symptoms Gastrointestinal: Reports: No Symptoms Genitourinary: Reports: No Symptoms Musculoskeletal: Reports: Back Pain (improving since last night ) - Patient Data Vitals - Most Recent: Last Vital Signs Temp 36.9 C 05/11/18 04:10 Pulse 95 05/11/18 04:10 Resp 16 05/11/18 04:10 BP 134/69 05/11/18 04:10 Pulse Ox 94 L 05/11/18 04:10 Weight - Most Recent: 86.636 kg I&O - Last 24 Hours: Intake & Output 05/10/18 05/10/18 05/11/18 14:59 22:59 06:59 Intake Total 60 50 Balance 60 50 Lab Results Last 24 Hours: Laboratory Results - last 24 hr 05/11/18 Range/Units 05:43 WBC 14.86 H (3.98-10.04) K/mm3 RBC 3.32 L (3.98-5.22) M/mm3 Hgb 9.4 L (11.2-15.7) gm/L Hct 29.4 L (34.1-44.9) % MCV 88.6 (79.4-94.8) fl MCH 28.3 (25.6-32.2) pg MCHC 32.0 L (32.2-35.5) g/dl RDW Std Deviation 44.8 (36.4-46.3) fL Plt Count 317 (182-369) K/mm3 MPV 9.2 L (9.4-12.3) fl Kenan Results Last 24 Hours: Microbiology 05/09/18 15:25 Aerobic Blood Culture - Preliminary Blood NO GROWTH AFTER 1 DAY Anaerobic Blood Culture - Preliminary Gram Negative Rods 05/09/18 14:50 Aerobic Blood Culture - Preliminary Blood NO GROWTH AFTER 1 DAY Anaerobic Blood Culture - Preliminary NO GROWTH AFTER 1 DAY 05/09/18 16:05 Urine Culture - Preliminary Urine, Clean Catch Gram Negative Rods Med Orders - Current: Current Medications Acetaminophen (Tylenol) 650 mg PO Q4H PRN PRN Reason: Fever Last Admin: 05/10/18 14:04 Dose: 650 mg Hydromorphone HCl (Dilaudid) 2 mg PO Q3H PRN PRN Reason: Pain Last Admin: 05/11/18 00:51 Dose: 2 mg Sodium Chloride (Normal Saline) 1,000 mls @ 75 mls/hr IV ASDIRECTED [facility] Last Admin: 05/11/18 05:52 Dose: 75 mls/hr Cefepime HCl 2 gm/ Premix 50 mls @ 100 mls/hr IV Q8H [facility] Last Admin: 05/11/18 01:43 Dose: 100 mls/hr Ibuprofen (Motrin) 600 mg PO Q6H PRN PRN Reason: Pain (mild 1-3) Last Admin: 05/11/18 00:09 Dose: 600 mg Ondansetron HCl (Zofran) 4 mg IVPUSH Q4H PRN PRN Reason: Nausea/Vomiting Discontinued Medications Acetaminophen (Tylenol) 975 mg PO NOW ONE Stop: 05/09/18 17:21 Last Admin: 05/09/18 17:30 Dose: 975 mg Acetaminophen (Tylenol) Confirm Administered Dose 975 mg .ROUTE .STK-MED ONE Stop: 05/09/18 17:23 Last Admin: 05/09/18 17:31 Dose: Not Given Ceftriaxone Sodium (Rocephin) Confirm Administered Dose 2 gm .ROUTE .STK-MED ONE Stop: 05/09/18 15:27 Last Admin: 05/09/18 15:33 Dose: Not Given Ceftriaxone Sodium (Rocephin) Confirm Administered Dose 2 gm IV .STK-MED ONE Stop: 05/09/18 15:30 Last Admin: 05/09/18 15:35 Dose: Not Given Hydromorphone HCl (Dilaudid) 2 mg PO ONETIME PRN PRN Reason: Pain (moderate 4-6) Stop: 05/11/18 02:59 Last Admin: 05/10/18 13:22 Dose: 2 mg Sodium Chloride (Normal Saline) 1,000 mls @ 999 mls/hr IV ONETIME [facility] Last Admin: 05/09/18 15:35 Dose: 999 mls/hr Ceftriaxone Sodium 2 gm/ (Sodium Chloride) 100 mls @ 200 mls/hr IV ONETIME ONE Stop: 05/09/18 15:47 Last Admin: 05/09/18 15:33 Dose: Not Given Ceftriaxone Sodium 2 gm/ (Sodium Chloride) 100 mls @ 200 mls/hr IV Q24H DINO Last Admin: 05/09/18 15:35 Dose: 200 mls/hr Sodium Chloride (Normal Saline) Confirm Administered Dose 100 mls @ as directed .ROUTE .STK-MED ONE Stop: 05/09/18 15:31 Last Admin: 05/09/18 15:35 Dose: Not Given Sodium Chloride (Normal Saline) 1,000 mls @ 999 mls/hr IV ONETIME [facility] Last Admin: 05/09/18 17:25 Dose: 999 mls/hr Sodium Chloride (Normal Saline) Confirm Administered Dose 1,000 mls @ as directed .ROUTE .[facility] ONE Stop: 05/09/18 17:22 Last Admin: 05/09/18 17:28 Dose: Not Given Sodium Chloride (Normal Saline) 1,000 mls @ 999 mls/hr IV ONETIME ONE Stop: 05/09/18 19:00 Last Admin: 05/09/18 18:38 Dose: Not Given Ceftriaxone Sodium 1 gm/ (Sodium Chloride) 100 mls @ 200 mls/hr IV Q24H [facility]IO Ceftriaxone Sodium 2 gm/ (Sodium Chloride) 100 mls @ 200 mls/hr IV Q24H [facility] Last Admin: 05/10/18 15:27 Dose: 200 mls/hr Piperacillin Sod/Tazobactam (Sod 4.5 gm/ Sodium Chloride) 100 mls @ 200 mls/hr IV Q6H [facility] Gentamicin Sulfate 600 mg/ (Sodium Chloride) 115 mls @ 200 mls/hr IV ONETIME ONE Stop: 05/10/18 17:27 Last Admin: 05/10/18 18:15 Dose: 200 mls/hr Piperacillin Sod/Tazobactam (Sod 4.5 gm/ Sodium Chloride) 100 mls @ 200 mls/hr IV ONETIME ONE Stop: 05/10/18 18:29 Piperacillin Sod/Tazobactam (Sod 4.5 gm/ Sodium Chloride) 100 mls @ 25 mls/hr IV Q8H DINO Ibuprofen (Motrin) 600 mg PO Q6H PRN PRN Reason: Pain (mild 1-3) - Exam General: Alert, Oriented, Cooperative Lungs: Clear to Auscultation, Normal Respiratory Effort Cardiovascular: Regular Rate, Regular Rhythm GI/Abdominal Exam: Soft, Non-Tender Back Exam: CVA Tenderness (R) (improved from yesterday ) Extremities: Normal Inspection Skin: Warm, Dry, Intact - Problem List & Annotations (1) fever, current hospitalization SNOMED Code(s): 121644538, 175449312 Code(s): O86.4 - PYREXIA OF UNKNOWN ORIGIN FOLLOWING DELIVERY Status: Acute Current Visit: Yes (2) Pyelonephritis SNOMED Code(s): 17875907 Code(s): N12 - TUBULO-INTERSTITIAL NEPHRITIS, NOT SPCF ACUTE OR CHRONIC Status: Acute Current Visit: Yes - Problem List Review Problem List Initiated/Reviewed/Updated: Yes - My Orders Last 24 Hours: My Active Orders 05/10/18 17:07 HYDROmorphone [Dilaudid] 2 mg PO Q3H PRN 05/10/18 17:30 Cefepime [Maxipime in D5W 2 GM/50 ML] 2 gm Premix Bag 1 bag IV Q8H 05/11/18 05:43 BASIC METABOLIC PANEL,BMP [CHEM] AM - Assessment Assessment:: HD#3 - admit for Pyelonephritis / bacteremia - Plan Plan:: * Urine culture and blood culture sensitivities still pending. Likely will return today * Antibiotics adjusted last night since had a fever after 2nd dose of ceftriaxone. Currently on Cefepime and Vancomycin. * Will need to stay in house until at least 24-48 hours afebrile * Will need to transition to oral medications eventually for total of 7-14 days of treatment
[2018-05-11] MEDS: Docusate Sodium 100 MG Cap PO PRN ×2 (09:34→22:41)
[2018-05-11] MEDS ORDERED: Gentamicin 40 MG/ML 2 ML Vial ONE (17:47)
[2018-05-11] MEDS ORDERED: Gentamicin 600 MG in Sodium Chloride 0.9% 100 ML IV ONE (18:00)
[2018-05-11] MEDS: Acetaminophen 325 MG Tab PO PRN (18:19)
[2018-05-11] MEDS ORDERED: Iopamidol 612 MG/ML 100 ML Bottle IVPUSH ONE (19:06)
--- NOTE | 2018-05-11 19:20 | PCM.SN ---
- Free Text/Narrative Note: 1819 Contacted by nursing that patient with fever to 38.8. Have ordered CT abdomen/ pelvis to evaluate for renal abscess/perinephric abscess. Will try to add on a CRP to this AM's labs. Patient up dated on reasoning for CT scan, plan of care , etc. Taina Kimball MD
--- NOTE | 2018-05-11 20:17 | CT ---
CT abdomen and pelvis Technique: Multiple axial sections were obtained from above the dome of the diaphragm inferiorly through the pubic symphysis. Intravenous contrast was utilized. No oral contrast was given. Delayed images were obtained through the bladder. Findings: Atelectasis seen within both lung bases. Focal low density is seen compatible with poorly enhancing portion of the right kidney. Kidneys otherwise show symmetric enhancement. Small nonobstructing calculus is seen within the mid to upper right kidney measuring about 1 mm. Ureters show no dilatation or obstruction. Contrast is seen within the distal ureters on delayed images with contrast also seen within the bladder. Liver shows no focal abnormality. Spleen appears normal. Adrenal glands show no nodule. Pancreas is within normal limits. Aorta shows no aneurysm. Appendix is seen which is normal in size. Uterus is enlarged compatible with state. No pelvic mass or adenopathy is seen. No inflammatory change or free fluid is seen. Impression: 1. Focal area of non-enhancement within the right kidney. This is most likely due to focal area of pyelonephritis. 2. No evidence of perinephric abscess. No ureteral dilatation or ureteral stone is seen. 3. Enlarged uterus compatible with state. 4. No additional abnormality is identified. Diagnostic code #3
[2018-05-11] MEDS ORDERED: Metoprolol Tartrate 5 MG/5 ML SDV IVPUSH PRN (20:58)
[2018-05-11] MEDS ORDERED: hydrALAZINE 20 MG/ML SDV IVPUSH PRN (20:58)
--- NOTE | 2018-05-11 21:03 | PCM.SN ---
- Free Text/Narrative Note: 2100 CRP added on to this AM's labs came back much more elevated at 30.8. Repeated currently and is now 27.5 with WBC also improving slightly from AM. CT scan done and with no findings of abscess. Did consult Dr. Arzate and he will see patient in AM. Recommendations are to continue cefepime overnight. He would recommend not continuing gentamicin. Also discussed with nursing and will plan on changing IV site and will plan on repeating cultures overnight if additional fever. Did contact lab and they believe sensitivities for blood culture will be back tomorrow. Patient and her agree with plan of care. No other questions at this time. Taina Kimball MD
[2018-05-11] MEDS ORDERED: Piperacillin/Tazobactam 4.5 GM in Sodium Chloride 0.9% 100 ML IV SCH ×3 (21:30)
[2018-05-11] MEDS: Potassium Chloride 20 MEQ Tab.ER PO SCH (22:38)
[2018-05-11] MEDS: Piperacillin/Tazobactam 4.5 GM in Sodium Chloride 0.9% 100 ML IV SCH (22:47)
[2018-05-12] MEDS ORDERED: Piperacillin/Tazobactam 4.5 GM AdvVial ONE (00:45)
[2018-05-12] MEDS: Cefepime 2 GM in Premix Bag 1 BAG IV SCH ×3 (01:33→17:39)
[2018-05-12] MEDS: Potassium Chloride 20 MEQ Tab.ER PO SCH (02:37)
[2018-05-12] MEDS: Piperacillin/Tazobactam 4.5 GM in Sodium Chloride 0.9% 100 ML IV SCH ×4 (05:12→20:53)
[2018-05-12] MEDS: Sodium Chloride 0.9% 1,000 ML IV SCH ×2 (06:49→20:51)
--- NOTE | 2018-05-12 07:00 | PCM.CONSN ---
- General Info Date of Service: 05/12/18 Admission Dx/Problem (Free Text): Admission Diagnosis/Problem Admission Diagnosis/Problem Pyelonephritis - Patient Data Vitals - Most Recent: Last Vital Signs Temp 97.9 F 05/12/18 05:30 Pulse 72 05/12/18 05:30 Resp 14 05/12/18 05:30 BP 138/99 H 05/12/18 05:30 Pulse Ox 97 05/12/18 05:30 Weight - Most Recent: 191 lb I&O - Last 24 Hours: Intake & Output 05/11/18 05/11/18 05/12/18 14:59 22:59 06:59 Intake Total 60 1250 Balance 60 1250 Lab Results Last 24 Hours: Laboratory Results - last 24 hr 05/11/18 05/11/18 05/11/18 Range/Units 05:43 20:20 20:20 WBC 13.52 H (3.98-10.04) K/mm3 RBC 3.24 L (3.98-5.22) M/mm3 Hgb 9.2 L (11.2-15.7) gm/L Hct 28.6 L (34.1-44.9) % MCV 88.3 (79.4-94.8) fl MCH 28.4 (25.6-32.2) pg MCHC 32.2 (32.2-35.5) g/dl RDW Std Deviation 44.9 (36.4-46.3) fL Plt Count 315 (182-369) K/mm3 MPV 9.2 L (9.4-12.3) fl C-Reactive Protein 30.8 H* 27.5 H* (<1.0) mg/dL 05/12/18 Range/Units 05:35 WBC 9.27 (3.98-10.04) K/mm3 RBC 3.07 L (3.98-5.22) M/mm3 Hgb 8.6 L (11.2-15.7) gm/L Hct 27.3 L (34.1-44.9) % MCV 88.9 (79.4-94.8) fl MCH 28.0 (25.6-32.2) pg MCHC 31.5 L (32.2-35.5) g/dl RDW Std Deviation 46.0 (36.4-46.3) fL Plt Count 347 (182-369) K/mm3 MPV 9.1 L (9.4-12.3) fl C-Reactive Protein (<1.0) mg/dL Kenan Results Last 24 Hours: Microbiology 05/09/18 15:25 Aerobic Blood Culture - Preliminary Blood NO GROWTH AFTER 2 DAYS Anaerobic Blood Culture - Preliminary Gram Negative Rods 05/09/18 14:50 Aerobic Blood Culture - Preliminary Blood NO GROWTH AFTER 2 DAYS Anaerobic Blood Culture - Preliminary NO GROWTH AFTER 2 DAYS 05/09/18 16:05 Urine Culture - Final Urine, Clean Catch Escherichia Coli Med Orders - Current: Current Medications Acetaminophen (Tylenol) 650 mg PO Q4H PRN PRN Reason: Fever Last Admin: 05/11/18 18:19 Dose: 650 mg Docusate Sodium (Colace) 100 mg PO BID PRN PRN Reason: Constipation Last Admin: 05/11/18 22:41 Dose: 100 mg Hydromorphone HCl (Dilaudid) 2 mg PO Q3H PRN PRN Reason: Pain Last Admin: 05/11/18 17:40 Dose: 2 mg Sodium Chloride (Normal Saline) 1,000 mls @ 125 mls/hr IV ASDIRECTED [facility] Last Admin: 05/12/18 06:49 Dose: 75 mls/hr Cefepime HCl 2 gm/ Premix 50 mls @ 100 mls/hr IV Q8H [facility] Last Admin: 05/12/18 01:33 Dose: 100 mls/hr Piperacillin Sod/Tazobactam (Sod 4.5 gm/ Sodium Chloride) 100 mls @ 200 mls/hr IV Q6H [facility] Last Admin: 05/12/18 05:12 Dose: 200 mls/hr Ibuprofen (Motrin) 600 mg PO Q6H PRN PRN Reason: Pain (mild 1-3) Last Admin: 05/11/18 22:42 Dose: 600 mg Magnesium Sulfate (Pharmacy To Dose - Magnesium Replacement) 1 dose .XX ASDIRECTED [facility] Metoprolol Tartrate (Lopressor) 5 mg IVPUSH Q4H PRN PRN Reason: Tachycardia Ondansetron HCl (Zofran) 4 mg IVPUSH Q4H PRN PRN Reason: Nausea/Vomiting Potassium Chloride (Pharmacy To Dose - Potassium Replacement) 1 dose .XX ASDIRECTED [facility] Saccharomyces Boulardii (Florastor) 250 mg PO BID [facility] Discontinued Medications Acetaminophen (Tylenol) 975 mg PO NOW ONE Stop: 05/09/18 17:21 Last Admin: 05/09/18 17:30 Dose: 975 mg Acetaminophen (Tylenol) Confirm Administered Dose 975 mg .ROUTE .STK-MED ONE Stop: 05/09/18 17:23 Last Admin: 05/09/18 17:31 Dose: Not Given Ceftriaxone Sodium (Rocephin) Confirm Administered Dose 2 gm .ROUTE .STK-MED ONE Stop: 05/09/18 15:27 Last Admin: 05/09/18 15:33 Dose: Not Given Ceftriaxone Sodium (Rocephin) Confirm Administered Dose 2 gm IV .STK-MED ONE Stop: 05/09/18 15:30 Last Admin: 05/09/18 15:35 Dose: Not Given Gentamicin Sulfate (Gentamicin) Confirm Administered Dose 80 mg .ROUTE .STK-MED ONE Stop: 05/11/18 17:48 Last Admin: 05/11/18 18:15 Dose: Not Given Hydralazine HCl (Apresoline) 20 mg IVPUSH Q4H PRN PRN Reason: Hypertension Hydromorphone HCl (Dilaudid) 2 mg PO ONETIME PRN PRN Reason: Pain (moderate 4-6) Stop: 05/11/18 02:59 Last Admin: 05/10/18 13:22 Dose: 2 mg Sodium Chloride (Normal Saline) 1,000 mls @ 999 mls/hr IV ONETIME [facility] Last Admin: 05/09/18 15:35 Dose: 999 mls/hr Ceftriaxone Sodium 2 gm/ (Sodium Chloride) 100 mls @ 200 mls/hr IV ONETIME ONE Stop: 05/09/18 15:47 Last Admin: 05/09/18 15:33 Dose: Not Given Ceftriaxone Sodium 2 gm/ (Sodium Chloride) 100 mls @ 200 mls/hr IV Q24H [facility] Last Admin: 05/09/18 15:35 Dose: 200 mls/hr Sodium Chloride (Normal Saline) Confirm Administered Dose 100 mls @ as directed .ROUTE .STK-MED ONE Stop: 05/09/18 15:31 Last Admin: 05/09/18 15:35 Dose: Not Given Sodium Chloride (Normal Saline) 1,000 mls @ 999 mls/hr IV ONETIME [facility] Last Admin: 05/09/18 17:25 Dose: 999 mls/hr Sodium Chloride (Normal Saline) Confirm Administered Dose 1,000 mls @ as directed .ROUTE .STK-MED ONE Stop: 05/09/18 17:22 Last Admin: 05/09/18 17:28 Dose: Not Given Sodium Chloride (Normal Saline) 1,000 mls @ 999 mls/hr IV ONETIME ONE Stop: 05/09/18 19:00 Last Admin: 05/09/18 18:38 Dose: Not Given Ceftriaxone Sodium 1 gm/ (Sodium Chloride) 100 mls @ 200 mls/hr IV Q24H [facility] Ceftriaxone Sodium 2 gm/ (Sodium Chloride) 100 mls @ 200 mls/hr IV Q24H [facility] Last Admin: 05/10/18 15:27 Dose: 200 mls/hr Piperacillin Sod/Tazobactam (Sod 4.5 gm/ Sodium Chloride) 100 mls @ 200 mls/hr IV Q6H [facility] Gentamicin Sulfate 600 mg/ (Sodium Chloride) 115 mls @ 200 mls/hr IV ONETIME ONE Stop: 05/10/18 17:27 Last Admin: 05/10/18 18:15 Dose: 200 mls/hr Piperacillin Sod/Tazobactam (Sod 4.5 gm/ Sodium Chloride) 100 mls @ 200 mls/hr IV ONETIME ONE Stop: 05/10/18 18:29 Piperacillin Sod/Tazobactam (Sod 4.5 gm/ Sodium Chloride) 100 mls @ 25 mls/hr IV Q8H [facility] Gentamicin Sulfate 600 mg/ (Sodium Chloride) 115 mls @ 200 mls/hr IV ONETIME ONE Stop: 05/11/18 18:34 Last Admin: 05/11/18 18:08 Dose: 200 mls/hr Piperacillin Sod/Tazobactam (Sod 4.5 gm/ Sodium Chloride) 100 mls @ 200 mls/hr IV Q6H [facility] Last Admin: 05/11/18 22:34 Dose: Not Given Ibuprofen (Motrin) 600 mg PO Q6H PRN PRN Reason: Pain (mild 1-3) Iopamidol (Isovue-300 (61%)) 100 ml IVPUSH ONETIME ONE Stop: 05/11/18 19:07 Last Admin: 05/11/18 19:27 Dose: 100 ml Phenazopyridine HCl (Urinary Pain Relief) 95 mg PO TIDPC [facility] Piperacillin Sod/Tazobactam Sod (Piperacil-Tazobact) Confirm Administered Dose 4.5 gm .ROUTE .STK-MED ONE Stop: 05/12/18 00:46 Last Admin: 05/12/18 00:56 Dose: Not Given Potassium Chloride (Klor-Con M20) 40 meq PO Q4H [facility] Stop: 05/12/18 01:31 Last Admin: 05/12/18 02:37 Dose: 40 meq
[2018-05-12] MEDS ORDERED: Piperacillin/Tazobactam 4.5 GM in Sodium Chloride 0.9% 100 ML IV SCH (07:30)
--- NOTE | 2018-05-12 07:45 | PCM.PN ---
- General Info Date of Service: 05/12/18 Functional Status: Reports: Pain Controlled, Tolerating Diet, Ambulating, Urinating - Review of Systems General: Reports: No Symptoms Pulmonary: Reports: No Symptoms Cardiovascular: Reports: No Symptoms Gastrointestinal: Reports: No Symptoms Genitourinary: Reports: No Symptoms Musculoskeletal: Reports: No Symptoms (back pain resolved from yesterday PM for the most part) - Patient Data Vitals - Most Recent: Last Vital Signs Temp 36.6 C 05/12/18 05:30 Pulse 72 05/12/18 05:30 Resp 14 05/12/18 05:30 BP 138/99 H 05/12/18 05:30 Pulse Ox 97 05/12/18 05:30 Weight - Most Recent: 86.636 kg I&O - Last 24 Hours: Intake & Output 05/11/18 05/12/18 05/12/18 22:59 06:59 14:59 Intake Total 1250 Balance 1250 Lab Results Last 24 Hours: Laboratory Results - last 24 hr 05/11/18 05/11/18 05/11/18 Range/Units 05:43 20:20 20:20 WBC 13.52 H (3.98-10.04) K/mm3 RBC 3.24 L (3.98-5.22) M/mm3 Hgb 9.2 L (11.2-15.7) gm/L Hct 28.6 L (34.1-44.9) % MCV 88.3 (79.4-94.8) fl MCH 28.4 (25.6-32.2) pg MCHC 32.2 (32.2-35.5) g/dl RDW Std Deviation 44.9 (36.4-46.3) fL Plt Count 315 (182-369) K/mm3 MPV 9.2 L (9.4-12.3) fl Sodium (136-145) mEq/L Potassium (3.5-5.1) mEq/L Chloride (98-107) mEq/L Carbon Dioxide (21-32) mEq/L Anion Gap (5-15) BUN (7-18) mg/dL Creatinine (0.55-1.02) mg/dL Est Cr Clr Drug Dosing mL/min Estimated GFR (MDRD) (>60) mL/min BUN/Creatinine Ratio (14-18) Glucose (74-106) mg/dL Calcium (8.5-10.1) mg/dL Magnesium (1.8-2.4) mg/dl C-Reactive Protein 30.8 H* 27.5 H* (<1.0) mg/dL 05/12/18 05/12/18 Range/Units 05:35 05:35 WBC 9.27 (3.98-10.04) K/mm3 RBC 3.07 L (3.98-5.22) M/mm3 Hgb 8.6 L (11.2-15.7) gm/L Hct 27.3 L (34.1-44.9) % MCV 88.9 (79.4-94.8) fl MCH 28.0 (25.6-32.2) pg MCHC 31.5 L (32.2-35.5) g/dl RDW Std Deviation 46.0 (36.4-46.3) fL Plt Count 347 (182-369) K/mm3 MPV 9.1 L (9.4-12.3) fl Sodium 141 (136-145) mEq/L Potassium 4.3 (3.5-5.1) mEq/L Chloride 110 H (98-107) mEq/L Carbon Dioxide 21 (21-32) mEq/L Anion Gap 14.3 (5-15) BUN 9 (7-18) mg/dL Creatinine 0.7 (0.55-1.02) mg/dL Est Cr Clr Drug Dosing 119.62 mL/min Estimated GFR (MDRD) > 60 (>60) mL/min BUN/Creatinine Ratio 12.9 L (14-18) Glucose 87 (74-106) mg/dL Calcium 8.8 (8.5-10.1) mg/dL Magnesium 1.8 (1.8-2.4) mg/dl C-Reactive Protein (<1.0) mg/dL [facility] Results Last 24 Hours: Microbiology 05/09/18 15:25 Aerobic Blood Culture - Preliminary Blood NO GROWTH AFTER 2 DAYS Anaerobic Blood Culture - Preliminary Gram Negative Rods 05/09/18 14:50 Aerobic Blood Culture - Preliminary Blood NO GROWTH AFTER 2 DAYS Anaerobic Blood Culture - Preliminary NO GROWTH AFTER 2 DAYS 05/09/18 16:05 Urine Culture - Final Urine, Clean Catch Escherichia Coli Med Orders - Current: Current Medications Acetaminophen (Tylenol) 650 mg PO Q4H PRN PRN Reason: Fever Last Admin: 05/11/18 18:19 Dose: 650 mg Docusate Sodium (Colace) 100 mg PO BID PRN PRN Reason: Constipation Last Admin: 05/11/18 22:41 Dose: 100 mg Hydromorphone HCl (Dilaudid) 2 mg PO Q3H PRN PRN Reason: Pain Last Admin: 05/11/18 17:40 Dose: 2 mg Sodium Chloride (Normal Saline) 1,000 mls @ 125 mls/hr IV ASDIRECTED [facility] Last Admin: 05/12/18 06:49 Dose: 75 mls/hr Cefepime HCl 2 gm/ Premix 50 mls @ 100 mls/hr IV Q8H [facility] Last Admin: 05/12/18 01:33 Dose: 100 mls/hr Piperacillin Sod/Tazobactam (Sod 4.5 gm/ Sodium Chloride) 100 mls @ 200 mls/hr IV Q6H [facility] Ibuprofen (Motrin) 600 mg PO Q6H PRN PRN Reason: Pain (mild 1-3) Last Admin: 05/11/18 22:42 Dose: 600 mg Magnesium Sulfate (Pharmacy To Dose - Magnesium Replacement) 0 dose .XX ASDIRECTED PRN PRN Reason: RX TO WATCH MAG LEVELS Metoprolol Tartrate (Lopressor) 5 mg IVPUSH Q4H PRN PRN Reason: Tachycardia Ondansetron HCl (Zofran) 4 mg IVPUSH Q4H PRN PRN Reason: Nausea/Vomiting Potassium Chloride (Pharmacy To Dose - Potassium Replacement) 0 dose .XX ASDIRECTED PRN PRN Reason: RX TO WATCH K LEVELS Saccharomyces Boulardii (Florastor) 250 mg PO BID [facility] Discontinued Medications Acetaminophen (Tylenol) 975 mg PO NOW ONE Stop: 05/09/18 17:21 Last Admin: 05/09/18 17:30 Dose: 975 mg Acetaminophen (Tylenol) Confirm Administered Dose 975 mg .ROUTE .STK-MED ONE Stop: 05/09/18 17:23 Last Admin: 05/09/18 17:31 Dose: Not Given Ceftriaxone Sodium (Rocephin) Confirm Administered Dose 2 gm .ROUTE .STK-MED ONE Stop: 05/09/18 15:27 Last Admin: 05/09/18 15:33 Dose: Not Given Ceftriaxone Sodium (Rocephin) Confirm Administered Dose 2 gm IV .STK-MED ONE Stop: 05/09/18 15:30 Last Admin: 05/09/18 15:35 Dose: Not Given Gentamicin Sulfate (Gentamicin) Confirm Administered Dose 80 mg .ROUTE .STK-MED ONE Stop: 05/11/18 17:48 Last Admin: 05/11/18 18:15 Dose: Not Given Hydralazine HCl (Apresoline) 20 mg IVPUSH Q4H PRN PRN Reason: Hypertension Hydromorphone HCl (Dilaudid) 2 mg PO ONETIME PRN PRN Reason: Pain (moderate 4-6) Stop: 05/11/18 02:59 Last Admin: 05/10/18 13:22 Dose: 2 mg Sodium Chloride (Normal Saline) 1,000 mls @ 999 mls/hr IV ONETIME [facility] Last Admin: 05/09/18 15:35 Dose: 999 mls/hr Ceftriaxone Sodium 2 gm/ (Sodium Chloride) 100 mls @ 200 mls/hr IV ONETIME ONE Stop: 05/09/18 15:47 Last Admin: 05/09/18 15:33 Dose: Not Given Ceftriaxone Sodium 2 gm/ (Sodium Chloride) 100 mls @ 200 mls/hr IV Q24H [facility] Last Admin: 05/09/18 15:35 Dose: 200 mls/hr Sodium Chloride (Normal Saline) Confirm Administered Dose 100 mls @ as directed .ROUTE .STK-MED ONE Stop: 05/09/18 15:31 Last Admin: 05/09/18 15:35 Dose: Not Given Sodium Chloride (Normal Saline) 1,000 mls @ 999 mls/hr IV ONETIME [facility] Last Admin: 05/09/18 17:25 Dose: 999 mls/hr Sodium Chloride (Normal Saline) Confirm Administered Dose 1,000 mls @ as directed .ROUTE .STK-MED ONE Stop: 05/09/18 17:22 Last Admin: 05/09/18 17:28 Dose: Not Given Sodium Chloride (Normal Saline) 1,000 mls @ 999 mls/hr IV ONETIME ONE Stop: 05/09/18 19:00 Last Admin: 05/09/18 18:38 Dose: Not Given Ceftriaxone Sodium 1 gm/ (Sodium Chloride) 100 mls @ 200 mls/hr IV Q24H [facility] Ceftriaxone Sodium 2 gm/ (Sodium Chloride) 100 mls @ 200 mls/hr IV Q24H [facility] Last Admin: 05/10/18 15:27 Dose: 200 mls/hr Piperacillin Sod/Tazobactam (Sod 4.5 gm/ Sodium Chloride) 100 mls @ 200 mls/hr IV Q6H [facility] Gentamicin Sulfate 600 mg/ (Sodium Chloride) 115 mls @ 200 mls/hr IV ONETIME ONE Stop: 05/10/18 17:27 Last Admin: 05/10/18 18:15 Dose: 200 mls/hr Piperacillin Sod/Tazobactam (Sod 4.5 gm/ Sodium Chloride) 100 mls @ 200 mls/hr IV ONETIME ONE Stop: 05/10/18 18:29 Piperacillin Sod/Tazobactam (Sod 4.5 gm/ Sodium Chloride) 100 mls @ 25 mls/hr IV Q8H [facility] Gentamicin Sulfate 600 mg/ (Sodium Chloride) 115 mls @ 200 mls/hr IV ONETIME ONE Stop: 05/11/18 18:34 Last Admin: 05/11/18 18:08 Dose: 200 mls/hr Piperacillin Sod/Tazobactam (Sod 4.5 gm/ Sodium Chloride) 100 mls @ 200 mls/hr IV Q6H [facility] Last Admin: 05/11/18 22:34 Dose: Not Given Piperacillin Sod/Tazobactam (Sod 4.5 gm/ Sodium Chloride) 100 mls @ 200 mls/hr IV Q6H [facility] Last Admin: 05/12/18 05:12 Dose: 200 mls/hr Ibuprofen (Motrin) 600 mg PO Q6H PRN PRN Reason: Pain (mild 1-3) Iopamidol (Isovue-300 (61%)) 100 ml IVPUSH ONETIME ONE Stop: 05/11/18 19:07 Last Admin: 05/11/18 19:27 Dose: 100 ml Phenazopyridine HCl (Urinary Pain Relief) 95 mg PO TIDPC [facility] Piperacillin Sod/Tazobactam Sod (Piperacil-Tazobact) Confirm Administered Dose 4.5 gm .ROUTE .STK-MED ONE Stop: 05/12/18 00:46 Last Admin: 05/12/18 00:56 Dose: Not Given Potassium Chloride (Klor-Con M20) 40 meq PO Q4H [facility] Stop: 05/12/18 01:31 Last Admin: 05/12/18 02:37 Dose: 40 meq - Exam General: Alert, Oriented, Cooperative Lungs: Clear to Auscultation, Normal Respiratory Effort Cardiovascular: Regular Rate, Regular Rhythm GI/Abdominal Exam: Soft, Non-Tender Back Exam: CVA Tenderness (R) (minimal) Extremities: Normal Inspection Skin: Warm, Dry, Intact - Problem List & Annotations (1) fever, current hospitalization SNOMED Code(s): 155611633, 281958788 Code(s): O86.4 - PYREXIA OF UNKNOWN ORIGIN FOLLOWING DELIVERY Status: Acute Current Visit: Yes (2) Pyelonephritis SNOMED Code(s): 65057105 Code(s): N12 - TUBULO-INTERSTITIAL NEPHRITIS, NOT SPCF ACUTE OR CHRONIC Status: Acute Current Visit: Yes (3) Bacteremia SNOMED Code(s): 0982523 Code(s): R78.81 - BACTEREMIA Status: Acute Current Visit: Yes - Problem List Review Problem List Initiated/Reviewed/Updated: Yes - My Orders Last 24 Hours: My Active Orders 05/11/18 08:08 Docusate Sodium [Colace] 100 mg PO BID PRN 05/12/18 07:30 Piperacillin/Tazobactam [Piperacil-Tazobact] 4.5 gm Sodium Chloride 0.9% [ Normal Saline] 100 ml IV Q6H - Assessment Assessment:: HD#4 - admit for Pyelonephritis / bacteremia - Plan Plan:: * Patient when first admitted Friday started on Ceftriaxone. On Friday after 2nd dose of Ceftriaxone had an additional fever. Antibiotics then expanded to Gentamicin and Cefepime. Last night had an additional fever after about [address] scan done and without evidence of abscess. Did consult Internal Medicine Service. They have decided to continue Cefepime and add in Zosyn. Patient doing well today. WBC has normalized this AM. Awaiting AM CRP. Blood culture sensitives should be back today. Will have Internal Medicine Service help guide narrowing of antibiotics when needed. Patient aware she will remain in house throughout day at least until tomorrow. Eventually will need to transition to an oral regimen. Will ensure this is compatible with breast feeding. She expressed understanding of plan.
--- NOTE | 2018-05-12 08:39 | PCM.CONS ---
H&P History of Present Illness - General Date of Service: 05/12/18 Admit Problem/Dx: Admission Diagnosis/Problem Admission Diagnosis/Problem Pyelonephritis Source of Information: Patient, Provider, RN, RN Notes Reviewed History Limitations: Reports: No Limitations - History of Present Illness Initial Comments - Free Text/Narative: Sharon Salvador is a 27 yo female who is 7 days from [facility] after IOL for gestational HTN. She is a . She reportedly noticed she was warm while feeding her new son on 05/09/18 and took her temperature. After it was elevated she called L&D and subsequently reported to the ED. She reported that she did not have much control over her bladder, noting urinary incontinence while standing up. She also noted mid lower abdominal pain. ED labs showed elevated WBC and CRP. UA was positive for nitrates with 2+ leukocyte esterase, WBC 40-50 , Moderate bacteria. She was noted to be febrile and tachycardic. Ceftriaxone was started for presumed pyelonephritis. Lactic acid was also noted to be 1.7. CXR was obtained and slight right lobe atelectasis was noted with nothing else acute see. It is noted she is She was subsequently admitted under Dr. Kimball to the OB floor. On the floor her WBC was noted to fluctuate between 13 and 14. CRP returned quite elevated at 30.8. The patient did continue to have fevers and an adequate switched to cefepime and gentamicin. UA returned positive for Escherichia coli and one of 4 blood cultures did return positive as well. All are guerrero sensitive. CT scan of abdomen and pelvis is obtained and interpreted by Dr. Garcia "1. Focal area of nonenhancing within the right kidney. This is most likely due to focal area of pyelonephritis. 2. No evidence of perinephric abscess. No ureteral dilation or urethral stone is seen. 3. Enlarged uterus compatible with state. 4. No additional abnormality is identified." Hospitalist service was consulted. Recommendations were to stop gentamicin and begin zosyn in addition to the cefepime. CRP and white count have continued to trend down. Electrolytes have remained WNL. Hospital medicine was consulted for continued pyelonephritis and bacteremia care. 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 Denies: Fever, Chills, Malaise, Weakness, Fatigue HEENT: Reports: No Symptoms. Denies: Eye Pain, Headaches, Rhinitis Pulmonary: Reports: No Symptoms. Denies: Shortness of Breath, Wheezing, Cough, Sputum Cardiovascular: Reports: No Symptoms. Denies: Chest Pain, Palpitations, Dyspnea on Exertion, Edema, Syncope Gastrointestinal: Reports: No Symptoms. Denies: Abdominal Pain, Constipation, Diarrhea, Distension, Nausea, Vomiting Genitourinary: Reports: Incontinence, Flank Pain (Right - improving ). Denies: Dysuria, Frequency, Burning, Pain, Hematuria Musculoskeletal: Reports: No Symptoms Skin: Reports: No Symptoms. Denies: Cyanosis Psychiatric: Reports: No Symptoms Neurological: Reports: No Symptoms. Denies: Dizziness, Headache, Numbness, Seizure, Syncope, Tingling, Trouble Speaking, Difficulty Walking, Weakness, Change in Speech, Gait Disturbance Hematologic/Lymphatic: Reports: No Symptoms Immunologic: Reports: No Symptoms Exam - Exam Exam: See Below - Vital Signs Vital Signs: Last Vital Signs Temp 98.8 F 05/12/18 08:22 Pulse 78 05/12/18 08:22 Resp 16 05/12/18 08:22 BP 140/82 05/12/18 08:22 Pulse Ox 97 05/12/18 08:22 Weight: 191 lb - Exam Quality Assessment: DVT Prophylaxis General: Alert, Oriented, Cooperative. No: Mild Distress HEENT: Conjunctiva Clear, EACs Clear, EOMI, Hearing Intact, Mucosa Moist & [place] , Nares Patent, Posterior Pharynx Clear, PERRLA Neck: Supple, Trachea Midline Lungs: Clear to Auscultation, Normal Respiratory Effort Cardiovascular: Regular Rate, Regular Rhythm GI/Abdominal Exam: Normal Bowel Sounds, Soft, Non-Tender, No Distention, No Abnormal Bruit (Female) Exam: Deferred Rectal (Female) Exam: Deferred Back Exam: Normal Inspection, Full Range of Motion Extremities: Normal Inspection, Normal Range of Motion, Non-Tender, No Pedal Edema, Normal Capillary Refill Peripheral Pulses: 2+: Radial (L), Radial (R), Dorsalis Pedis (L), Dorsalis Pedis (R) Skin: Warm, Dry, Intact Neurological: Cranial Nerves Intact (Grossly ) Neuro Extensive - Mental Status: Alert, Oriented x3, Normal Mood/Affect, Normal Cognition, Memory Intact - Patient Data Lab Results Last 24 hrs: Laboratory Results - last 24 hr 05/11/18 05/11/18 05/11/18 Range/Units 05:43 20:20 20:20 WBC 13.52 H (3.98-10.04) K/mm3 RBC 3.24 L (3.98-5.22) M/mm3 Hgb 9.2 L (11.2-15.7) gm/L Hct 28.6 L (34.1-44.9) % MCV 88.3 (79.4-94.8) fl MCH 28.4 (25.6-32.2) pg MCHC 32.2 (32.2-35.5) g/dl RDW Std Deviation 44.9 (36.4-46.3) fL Plt Count 315 (182-369) K/mm3 MPV 9.2 L (9.4-12.3) fl Sodium (136-145) mEq/L Potassium (3.5-5.1) mEq/L Chloride (98-107) mEq/L Carbon Dioxide (21-32) mEq/L Anion Gap (5-15) BUN (7-18) mg/dL Creatinine (0.55-1.02) mg/dL Est Cr Clr Drug Dosing mL/min Estimated GFR (MDRD) (>60) mL/min BUN/Creatinine Ratio (14-18) Glucose (74-106) mg/dL Calcium (8.5-10.1) mg/dL Magnesium (1.8-2.4) mg/dl C-Reactive Protein 30.8 H* 27.5 H* (<1.0) mg/dL 05/12/18 05/12/18 05/12/18 Range/Units 05:35 05:35 05:35 WBC 9.27 (3.98-10.04) K/mm3 RBC 3.07 L (3.98-5.22) M/mm3 Hgb 8.6 L (11.2-15.7) gm/L Hct 27.3 L (34.1-44.9) % MCV 88.9 (79.4-94.8) fl MCH 28.0 (25.6-32.2) pg MCHC 31.5 L (32.2-35.5) g/dl RDW Std Deviation 46.0 (36.4-46.3) fL Plt Count 347 (182-369) K/mm3 MPV 9.1 L (9.4-12.3) fl Sodium 141 (136-145) mEq/L Potassium 4.3 (3.5-5.1) mEq/L Chloride 110 H (98-107) mEq/L Carbon Dioxide 21 (21-32) mEq/L Anion Gap 14.3 (5-15) BUN 9 (7-18) mg/dL Creatinine 0.7 (0.55-1.02) mg/dL Est Cr Clr Drug Dosing 119.62 mL/min Estimated GFR (MDRD) > 60 (>60) mL/min BUN/Creatinine Ratio 12.9 L (14-18) Glucose 87 (74-106) mg/dL Calcium 8.8 (8.5-10.1) mg/dL Magnesium 1.8 (1.8-2.4) mg/dl C-Reactive Protein 24.8 H* (<1.0) mg/dL Result Diagrams: 05/12/18 05:35 05/12/18 05:35 Kenan Results Last 24 hrs: Microbiology 05/09/18 15:25 Aerobic Blood Culture - Preliminary Blood NO GROWTH AFTER 2 DAYS Anaerobic Blood Culture - Preliminary Escherichia Coli 05/09/18 14:50 Aerobic Blood Culture - Preliminary Blood NO GROWTH AFTER 2 DAYS Anaerobic Blood Culture - Preliminary NO GROWTH AFTER 2 DAYS 05/09/18 16:05 Urine Culture - Final Urine, Clean Catch Escherichia Coli Consult PN Assessment/Plan (1) Bacteremia SNOMED Code(s): 4904467 Code(s): R78.81 - BACTEREMIA Current Visit: Yes (2) fever, current hospitalization SNOMED Code(s): 592613987, 023435744 Code(s): O86.4 - PYREXIA OF UNKNOWN ORIGIN FOLLOWING DELIVERY Current Visit : Yes (3) Pyelonephritis SNOMED Code(s): 84118597 Code(s): N12 - TUBULO-INTERSTITIAL NEPHRITIS, NOT SPCF ACUTE OR CHRONIC Current Visit: Yes Problem List Initiated/Reviewed/Updated: Yes Plan: I/P: Acute: Pyelonephritis -Started to notice back pain 4 days after delivery -Reports incontinence when ambulating, fever, generalized feeling of unwellness -UA positive for nitrates with 2+ LE -UA growing E. Coli - guerrero sensitive -CT scan notes non-enhancement in right kidney suggestive of pyelonephritis with no abscess, stone, or ureteral dilation. -Started on Rocephin in ED -> switched to cefepime and gentamicin -> switched to cefepime and Zosyn -WBC 14.18-->13.81-->14.86-->13.52-->9.27 -CRP 6.7-->30.8-->27.5-->24.8 -LA 1.7 -IV fluids as ordered -Motrin for pain/fever per primary service -Probiotic -Continue current treatment plan Bacteremia -/ BC positive for E.Coli - guerrero sensitive -Likely true bacteremia as it is same bacteria as urine -IV antibiotics as above -Repeat blood cultures today - 05/12/18 -She has remained afebrile through night and today -Continue current treatment plan Chronic: Gestational HTN Non-smoker Plan: Admitted to OB Monitor electrolytes Continue current treatment plan Routine labs as ordered Other orders as indicated above Incentive spirometry for minor atelectasis noted on CXR VTE score 2: ambulate and SIERRA hose Await return of negative blood cultures before considering discharge Other orders per primary team Code status: Full Molly; PCP: Dr. Kimball Thank you for allowing us to participate in the care of this patient! Requesting Provider: Dr. Kimball Date Consult Requested: 05/11/18 Reason for Consult: Pyelonephritis with bacteremia in post- patient Patient History Reviewed: Yes Admission H&P Reviewed: Yes Notified Requestor: Yes Time Spent (in minutes): 40
[2018-05-12] MEDS ORDERED: Phenazopyridine 95 MG Tab PO SCH (09:00)
[2018-05-12] MEDS: Docusate Sodium 100 MG Cap PO PRN ×2 (09:23→20:52)
[2018-05-12] MEDS: Ibuprofen 600 MG Tab PO PRN ×3 (09:23→23:08)
[2018-05-12] MEDS: Saccharomyces Boulardii (Probiotic) 250 MG Cap PO SCH ×2 (09:23→20:52)
[2018-05-13] MEDS: Cefepime 2 GM in Premix Bag 1 BAG IV SCH ×2 (02:07→09:57)
[2018-05-13] MEDS: Piperacillin/Tazobactam 4.5 GM in Sodium Chloride 0.9% 100 ML IV SCH (05:04)
--- NOTE | 2018-05-13 06:49 | PCM.PN ---
- General Info Date of Service: 05/13/18 Functional Status: Reports: Pain Controlled, Tolerating Diet, Ambulating, Urinating - Review of Systems General: Reports: No Symptoms Pulmonary: Reports: No Symptoms Cardiovascular: Reports: No Symptoms Gastrointestinal: Reports: No Symptoms Genitourinary: Reports: No Symptoms Musculoskeletal: Reports: No Symptoms - Patient Data Vitals - Most Recent: Last Vital Signs Temp 36.8 C 05/13/18 02:52 Pulse 73 05/13/18 02:52 Resp 16 05/12/18 23:24 BP 125/67 05/13/18 02:52 Pulse Ox 98 05/13/18 02:52 Weight - Most Recent: 86.636 kg I&O - Last 24 Hours: Lab Results Last 24 Hours: Kenan Results Last 24 Hours: Med Orders - Current: - Exam General: Alert, Oriented, Cooperative Lungs: Clear to Auscultation, Normal Respiratory Effort Cardiovascular: Regular Rate, Regular Rhythm GI/Abdominal Exam: Soft, Non-Tender (Female) Exam: Normal External Exam Back Exam: Normal Inspection. No: CVA Tenderness (L), CVA Tenderness (R) Extremities: Normal Inspection Skin: Warm, Dry, Intact - Problem List & Annotations (1) fever, current hospitalization SNOMED Code(s): 979473541, 123254990 Code(s): O86.4 - PYREXIA OF UNKNOWN ORIGIN FOLLOWING DELIVERY Status: Acute Current Visit: Yes (2) Pyelonephritis SNOMED Code(s): 93593666 Code(s): N12 - TUBULO-INTERSTITIAL NEPHRITIS, NOT SPCF ACUTE OR CHRONIC Status: Acute Current Visit: Yes (3) Bacteremia SNOMED Code(s): 0931050 Code(s): R78.81 - BACTEREMIA Status: Acute Current Visit: Yes - Problem List Review Problem List Initiated/Reviewed/Updated: Yes - Assessment Assessment:: HD#5 - admit for Pyelonephritis / bacteremia - Plan Plan:: * Patient doing well. Yesterday highest temperature was 38.0 at about 1530. WBC down even further this AM to 7. CRP also continues to drop. Have discussed with Internal Medicine team and if repeat blood cultures drawn yesterday return preliminarily negative today can hopefully transition to oral medications and discharge home. Patient agrees with plan. No other questions at this time
--- NOTE | 2018-05-13 06:52 | PCM.CONSN ---
- General Info Date of Service: 05/13/18 Admission Dx/Problem (Free Text): Admission Diagnosis/Problem Admission Diagnosis/Problem Pyelonephritis Subjective Update: In to see Robb. She is standing in the room and her is at bedside. Clinically she looks good. WBC is back WNL and CRP is trending downward. Repeat blood culture is negative after one day. She is not having any back pain currently. She had a very low grade elevated temp overnight which was not significant. Discussed progress thus far and concerns which would warrant immediate follow-up such as significant fever, urinary symptoms, etc. Will discharge on Keflex 1gm Q8Hr at recommendation of pharmacy. This will be a 5 day course. This should be safe as she is breast feeding. Will also prescribe 30 day course of probiotic as she has had multiple antibiotics while here. Dr. Javed updated and agrees to plan. All patient questions answered. Prescriptions sent electronically to Clinic pharmacy. Functional Status: Reports: Pain Controlled - Review of Systems General: Reports: No Symptoms. Denies: Fever, Weakness, Fatigue, Malaise, Chills HEENT: Reports: No Symptoms. Denies: Headaches, Sore Throat Pulmonary: Reports: No Symptoms. Denies: Shortness of Breath, Pleuritic Chest Pain, Cough, Sputum, Wheezing Cardiovascular: Reports: No Symptoms. Denies: Chest Pain, Palpitations, Dyspnea on Exertion, Edema, Lightheadedness Gastrointestinal: Reports: No Symptoms. Denies: Abdominal Pain, Constipation, Decreased Appetite, Diarrhea, Difficulty Swallowing, Nausea, Vomiting Genitourinary: Reports: No Symptoms. Denies: Dysuria, Burning, Pain, Urgency Musculoskeletal: Reports: No Symptoms. Denies: Back Pain Skin: Reports: No Symptoms. Denies: Cyanosis Neurological: Reports: No Symptoms. Denies: Confusion, Dizziness, Numbness, Pre -Existing Deficit, Seizure, Syncope, Tingling, Trouble Speaking, Difficulty Walking, Weakness, Change in Speech, Gait Disturbance Psychiatric: Reports: No Symptoms - Patient Data Vitals - Most Recent: Last Vital Signs Temp 98.2 F 05/13/18 02:52 Pulse 73 05/13/18 02:52 Resp 16 05/12/18 23:24 BP 125/67 05/13/18 02:52 Pulse Ox 98 05/13/18 02:52 Weight - Most Recent: 191 lb I&O - Last 24 Hours: Intake & Output 05/12/18 05/12/18 05/13/18 14:59 22:59 06:59 Intake Total 60 1150 Balance 60 1150 Lab Results Last 24 Hours: Laboratory Results - last 24 hr 05/12/18 05/12/18 05/13/18 Range/Units 05:35 05:35 06:00 WBC 7.37 (3.98-10.04) K/mm3 RBC 3.19 L (3.98-5.22) M/mm3 Hgb 8.9 L (11.2-15.7) gm/L Hct 28.4 L (34.1-44.9) % MCV 89.0 (79.4-94.8) fl MCH 27.9 (25.6-32.2) pg MCHC 31.3 L (32.2-35.5) g/dl RDW Std Deviation 45.1 (36.4-46.3) fL Plt Count 405 H (182-369) K/mm3 MPV 9.0 L (9.4-12.3) fl Sodium 141 (136-145) mEq/L Potassium 4.3 (3.5-5.1) mEq/L Chloride 110 H (98-107) mEq/L Carbon Dioxide 21 (21-32) mEq/L Anion Gap 14.3 (5-15) BUN 9 (7-18) mg/dL Creatinine 0.7 (0.55-1.02) mg/dL Est Cr Clr Drug Dosing 119.62 mL/min Estimated GFR (MDRD) > 60 (>60) mL/min BUN/Creatinine Ratio 12.9 L (14-18) Glucose 87 (74-106) mg/dL Calcium 8.8 (8.5-10.1) mg/dL Magnesium 1.8 (1.8-2.4) mg/dl C-Reactive Protein 24.8 H* (<1.0) mg/dL Kenan Results Last 24 Hours: Microbiology 05/09/18 15:25 Aerobic Blood Culture - Preliminary Blood NO GROWTH AFTER 3 DAYS Anaerobic Blood Culture - Preliminary Escherichia Coli 05/09/18 14:50 Aerobic Blood Culture - Preliminary Blood NO GROWTH AFTER 3 DAYS Anaerobic Blood Culture - Preliminary NO GROWTH AFTER 3 DAYS Med Orders - Current: Current Medications Acetaminophen (Tylenol) 650 mg PO Q4H PRN PRN Reason: Fever Last Admin: 05/11/18 18:19 Dose: 650 mg Docusate Sodium (Colace) 100 mg PO BID PRN PRN Reason: Constipation Last Admin: 05/12/18 20:52 Dose: 100 mg Hydromorphone HCl (Dilaudid) 2 mg PO Q3H PRN PRN Reason: Pain Last Admin: 05/11/18 17:40 Dose: 2 mg Sodium Chloride (Normal Saline) 1,000 mls @ 50 mls/hr IV ASDIRECTED [facility] Last Infusion: 05/13/18 01:22 Dose: 50 mls/hr Cefepime HCl 2 gm/ Premix 50 mls @ 100 mls/hr IV Q8H [facility] Last Admin: 05/13/18 02:07 Dose: 100 mls/hr Piperacillin Sod/Tazobactam (Sod 4.5 gm/ Sodium Chloride) 100 mls @ 25 mls/hr IV Q8H [facility] Last Admin: 05/13/18 05:04 Dose: 25 mls/hr Ibuprofen (Motrin) 600 mg PO Q6H PRN PRN Reason: Pain (mild 1-3) Last Admin: 05/12/18 23:08 Dose: 600 mg Magnesium Sulfate (Pharmacy To Dose - Magnesium Replacement) 0 dose .XX ASDIRECTED PRN PRN Reason: RX TO WATCH MAG LEVELS Ondansetron HCl (Zofran) 4 mg IVPUSH Q4H PRN PRN Reason: Nausea/Vomiting Potassium Chloride (Pharmacy To Dose - Potassium Replacement) 0 dose .XX ASDIRECTED PRN PRN Reason: RX TO WATCH K LEVELS Saccharomyces Boulardii (Florastor) 250 mg PO BID [facility] Last Admin: 05/12/18 20:52 Dose: 250 mg Discontinued Medications Acetaminophen (Tylenol) 975 mg PO NOW ONE Stop: 05/09/18 17:21 Last Admin: 05/09/18 17:30 Dose: 975 mg Acetaminophen (Tylenol) Confirm Administered Dose 975 mg .ROUTE .STK-MED ONE Stop: 05/09/18 17:23 Last Admin: 05/09/18 17:31 Dose: Not Given Ceftriaxone Sodium (Rocephin) Confirm Administered Dose 2 gm .ROUTE .STK-MED ONE Stop: 05/09/18 15:27 Last Admin: 05/09/18 15:33 Dose: Not Given Ceftriaxone Sodium (Rocephin) Confirm Administered Dose 2 gm IV .STK-MED ONE Stop: 05/09/18 15:30 Last Admin: 05/09/18 15:35 Dose: Not Given Gentamicin Sulfate (Gentamicin) Confirm Administered Dose 80 mg .ROUTE .STK-MED ONE Stop: 05/11/18 17:48 Last Admin: 05/11/18 18:15 Dose: Not Given Hydralazine HCl (Apresoline) 20 mg IVPUSH Q4H PRN PRN Reason: Hypertension Hydromorphone HCl (Dilaudid) 2 mg PO ONETIME PRN PRN Reason: Pain (moderate 4-6) Stop: 05/11/18 02:59 Last Admin: 05/10/18 13:22 Dose: 2 mg Sodium Chloride (Normal Saline) 1,000 mls @ 999 mls/hr IV ONETIME [facility] Last Admin: 05/09/18 15:35 Dose: 999 mls/hr Ceftriaxone Sodium 2 gm/ (Sodium Chloride) 100 mls @ 200 mls/hr IV ONETIME ONE Stop: 05/09/18 15:47 Last Admin: 05/09/18 15:33 Dose: Not Given Ceftriaxone Sodium 2 gm/ (Sodium Chloride) 100 mls @ 200 mls/hr IV Q24H [facility] Last Admin: 05/09/18 15:35 Dose: 200 mls/hr Sodium Chloride (Normal Saline) Confirm Administered Dose 100 mls @ as directed .ROUTE .STK-MED ONE Stop: 05/09/18 15:31 Last Admin: 05/09/18 15:35 Dose: Not Given Sodium Chloride (Normal Saline) 1,000 mls @ 999 mls/hr IV ONETIME DINO Last Admin: 05/09/18 17:25 Dose: 999 mls/hr Sodium Chloride (Normal Saline) Confirm Administered Dose 1,000 mls @ as directed .ROUTE .STK-MED ONE Stop: 05/09/18 17:22 Last Admin: 05/09/18 17:28 Dose: Not Given Sodium Chloride (Normal Saline) 1,000 mls @ 999 mls/hr IV ONETIME ONE Stop: 05/09/18 19:00 Last Admin: 05/09/18 18:38 Dose: Not Given Ceftriaxone Sodium 1 gm/ (Sodium Chloride) 100 mls @ 200 mls/hr IV Q24H DINO Ceftriaxone Sodium 2 gm/ (Sodium Chloride) 100 mls @ 200 mls/hr IV Q24H [facility] Last Admin: 05/10/18 15:27 Dose: 200 mls/hr Piperacillin Sod/Tazobactam (Sod 4.5 gm/ Sodium Chloride) 100 mls @ 200 mls/hr IV Q6H [facility] Gentamicin Sulfate 600 mg/ (Sodium Chloride) 115 mls @ 200 mls/hr IV ONETIME ONE Stop: 05/10/18 17:27 Last Admin: 05/10/18 18:15 Dose: 200 mls/hr Piperacillin Sod/Tazobactam (Sod 4.5 gm/ Sodium Chloride) 100 mls @ 200 mls/hr IV ONETIME ONE Stop: 05/10/18 18:29 Piperacillin Sod/Tazobactam (Sod 4.5 gm/ Sodium Chloride) 100 mls @ 25 mls/hr IV Q8H [facility] Gentamicin Sulfate 600 mg/ (Sodium Chloride) 115 mls @ 200 mls/hr IV ONETIME ONE Stop: 05/11/18 18:34 Last Admin: 05/11/18 18:08 Dose: 200 mls/hr Piperacillin Sod/Tazobactam (Sod 4.5 gm/ Sodium Chloride) 100 mls @ 200 mls/hr IV Q6H [facility] Last Admin: 05/11/18 22:34 Dose: Not Given Piperacillin Sod/Tazobactam (Sod 4.5 gm/ Sodium Chloride) 100 mls @ 200 mls/hr IV Q6H [facility] Last Admin: 05/12/18 05:12 Dose: 200 mls/hr Piperacillin Sod/Tazobactam (Sod 4.5 gm/ Sodium Chloride) 100 mls @ 200 mls/hr IV Q6H [facility] Last Admin: 05/13/18 01:15 Dose: Not Given Ibuprofen (Motrin) 600 mg PO Q6H PRN PRN Reason: Pain (mild 1-3) Iopamidol (Isovue-300 (61%)) 100 ml IVPUSH ONETIME ONE Stop: 05/11/18 19:07 Last Admin: 05/11/18 19:27 Dose: 100 ml Metoprolol Tartrate (Lopressor) 5 mg IVPUSH Q4H PRN PRN Reason: Tachycardia Phenazopyridine HCl (Urinary Pain Relief) 95 mg PO TIDPC [facility] Piperacillin Sod/Tazobactam Sod (Piperacil-Tazobact) Confirm Administered Dose 4.5 gm .ROUTE .STK-MED ONE Stop: 05/12/18 00:46 Last Admin: 05/12/18 00:56 Dose: Not Given Potassium Chloride (Klor-Con M20) 40 meq PO Q4H [facility] Stop: 05/12/18 01:31 Last Admin: 05/12/18 02:37 Dose: 40 meq - Exam Quality Assessment: DVT Prophylaxis General: Alert, Oriented, Cooperative, No Acute Distress HEENT: Pupils Equal, Pupils Reactive, EOMI, Mucous Membr. Moist/[place] Neck: Supple, Trachea Midline Lungs: Clear to Auscultation, Normal Respiratory Effort Cardiovascular: Regular Rate, Regular Rhythm GI/Abdominal Exam: Normal Bowel Sounds, Soft, Non-Tender, No Distention, No Abnormal Bruit (Female) Exam: Deferred Back Exam: Normal Inspection, Full Range of Motion. No: CVA Tenderness (L), CVA Tenderness (R) Extremities: Normal Inspection, Normal Range of Motion, Non-Tender, No Pedal Edema, Normal Capillary Refill Peripheral Pulses: 2+: Radial (L), Radial (R), Dorsalis Pedis (L), Dorsalis Pedis (R) Skin: Warm, Dry, Intact Neurological: No New Focal Deficit Psy/Mental Status: Alert, Normal Affect, Normal Mood Consult PN Assessment/Plan (1) Bacteremia SNOMED Code(s): 0708441 Code(s): R78.81 - BACTEREMIA Current Visit: Yes (2) fever, current hospitalization SNOMED Code(s): 382240624, 496647829 Code(s): O86.4 - PYREXIA OF UNKNOWN ORIGIN FOLLOWING DELIVERY Current Visit : Yes (3) Pyelonephritis SNOMED Code(s): 17918945 Code(s): N12 - TUBULO-INTERSTITIAL NEPHRITIS, NOT SPCF ACUTE OR CHRONIC Current Visit: Yes Problem List Initiated/Reviewed/Updated: Yes Plan: I/P: Acute: Pyelonephritis -Started to notice back pain 4 days after delivery -Reports incontinence when ambulating, fever, generalized feeling of unwellness -UA positive for nitrates with 2+ LE -UA growing E. Coli - guerrero sensitive -CT scan notes non-enhancement in right kidney suggestive of pyelonephritis with no abscess, stone, or ureteral dilation. -Started on Rocephin in ED -> switched to cefepime and gentamicin -> switched to cefepime and Zosyn-> discharge on oral keflex -WBC 14.18-->13.81-->14.86-->13.52-->9.27-->7.37 -CRP 6.7-->30.8-->27.5-->24.8--19.3 -LA 1.7 -IV fluids as ordered -Motrin for pain/fever per primary service -Probiotic -Continue current treatment plan Bacteremia -04/10 BC positive for E.Coli - guerrero sensitive -Likely true bacteremia as it is same bacteria as urine -IV antibiotics as above -Repeat blood cultures negative after 24 hours -She has remained afebrile for past 2 days -Continue current treatment plan Chronic: Gestational HTN Non-smoker Plan: Discharge today on oral probiotic for 30 days and Keflex 1gm Q8Hr for 5 days total Admitted to OB Monitor electrolytes Routine labs as ordered Other orders as indicated above Incentive spirometry for minor atelectasis noted on CXR VTE score 2: ambulate and SIERRA hose Other orders per primary team Code status: Full Molly; PCP: Dr. Kimball Thank you for allowing us to participate in the care of this patient! Overall Sharon has been doing well. She continues to improve and labs have remained stable. Dr. Kimball updated. She is cleared for discharge today and Dr. Kimball will put in orders. Prescription for Keflex 1gm q8hr for 5 days and 30 day course of probiotic have been sent to clinic pharmacy per patient request. She was advised to continue motrin PRN for pain per Dr. Kimball. She should follow-up with Dr. Kimball within 7-10 days or sooner if needed. Patient and her were advised of all warning signs for continued symptoms and how to follow-up should symptoms return.
[2018-05-13] MEDS: Saccharomyces Boulardii (Probiotic) 250 MG Cap PO SCH (09:13)
[2018-05-13] MEDS: Docusate Sodium 100 MG Cap PO PRN (09:13)
[2018-05-13] MEDS: Ibuprofen 600 MG Tab PO PRN (09:13)
--- NOTE | 2018-05-13 11:34 | PCM.DCSUM1 ---
Discharge Summary - Discharge Data Discharge Date: 05/13/18 Discharge Disposition: Home, Self-Care 01 Condition: Good - Discharge Diagnosis/Problem(s) (1) fever, current hospitalization SNOMED Code(s): 890831778, [id number] ICD Code: O86.4 - PYREXIA OF UNKNOWN ORIGIN FOLLOWING DELIVERY Status: Acute (2) Pyelonephritis SNOMED Code(s): 63249224 ICD Code: N12 - TUBULO-INTERSTITIAL NEPHRITIS, NOT SPCF ACUTE OR CHRONIC Status: Acute (3) Bacteremia SNOMED Code(s): 9002209 ICD Code: R78.81 - BACTEREMIA Status: Acute - Patient Summary/Data Complications: None Consults: Internal Medicine Recommended Follow-up Testing/Procedures: Follow up in 1 week Hospital Course: 27 y/o woman who was 4 days s/p uncomplicated vaginal delivery who presented to the ER with a few hours of fevers/chills. UA done and notable for signs of likely infection. She was started on Ceftriaxone for presumed pyelonephritis and admitted to the floor. During course of admission one blood culture from ER and urine culture showed signs of GNR. At about 24 hours of admission patient had an additional fever and so antibiotics expanded to cefepime and gentamicin while awaiting culture sensitivities. This did result as E. coli which was guerrero sensitive. At about 24 hours of her new antibiotics regimen she had another fever. CT scan done at that time which ruled out any findings of abscess. IM consulted at this point and antibiotics adjusted to cefepime and Zosyn per their recommendations. Patient stayed in house about another 36 hours after this and did well. Repeat blood cultures done and preliminarily negative. She was thus discharged to home on Keflex per IM recommendations. She will follow up in clinic within 1 week. She was given strict precautions to return with any fever or other concerns - Patient Instructions Diet: Regular Diet as Tolerated Activity: As Tolerated Activity, Other: pelvic rest Driving: May Drive Today Showering/Bathing: May Shower Showering/Bathing, Other: May bathe Notify Provider of: Fever, Increased Pain, Nausea and/or Vomiting - Discharge Plan *PRESCRIPTION DRUG MONITORING PROGRAM REVIEWED*: Not Applicable *COPY OF PRESCRIPTION DRUG MONITORING REPORT IN PATIENT PATRICIA: Not Applicable Prescriptions/Med Rec: Cephalexin [Keflex] 1 gm PO Q8HR 5 Days #30 capsule Saccharomyces Boulardii [Probiotic] 250 mg PO BID 30 Days #60 capsule Home Medications: Home Meds Docusate Sodium [Colace] 100 mg PO BID PRN cap 05/06/18 [Rx] Ibuprofen [Motrin] 600 mg PO Q6H PRN tablet 05/06/18 [Rx] Cephalexin [Keflex] 1 gm PO Q8HR 5 Days #30 capsule 05/13/18 [Rx] Saccharomyces Boulardii [Probiotic] 250 mg PO BID 30 Days #60 capsule 05/13/18 [ Rx] Patient Handouts: Pyelonephritis, Adult Forms: ED Department Discharge Referrals: Taina Kimball MD [Primary Care Provider] - (1 week) - Discharge Summary/Plan Comment DC Time >30 min.: No - Patient Data Vitals - Most Recent: Last Vital Signs Temp 37.3 C 05/13/18 08:02 Pulse 75 05/13/18 08:02 Resp 16 05/13/18 08:02 BP 138/81 05/13/18 08:02 Pulse Ox 98 05/13/18 08:02 Weight - Most Recent: 86.636 kg I&O - Last 24 hours: Intake & Output 05/12/18 05/13/18 05/13/18 22:59 06:59 14:59 Intake Total 1150 60 Balance 1150 60 Lab Results - Last 24 hrs: Laboratory Results - last 24 hr 05/13/18 05/13/18 Range/Units 06:00 06:00 WBC 7.37 (3.98-10.04) K/mm3 RBC 3.19 L (3.98-5.22) M/mm3 Hgb 8.9 L (11.2-15.7) gm/L Hct 28.4 L (34.1-44.9) % MCV 89.0 (79.4-94.8) fl MCH 27.9 (25.6-32.2) pg MCHC 31.3 L (32.2-35.5) g/dl RDW Std Deviation 45.1 (36.4-46.3) fL Plt Count 405 H (182-369) K/mm3 MPV 9.0 L (9.4-12.3) fl Potassium 3.8 (3.5-5.1) mEq/L C-Reactive Protein 19.3 H* (<1.0) mg/dL [id number] Results - Last 24 hrs: Microbiology 05/12/18 09:05 Aerobic Blood Culture - Preliminary Blood - Venous - Lab Draw NO GROWTH AFTER 1 DAY Anaerobic Blood Culture - Preliminary NO GROWTH AFTER 1 DAY 05/12/18 09:15 Aerobic Blood Culture - Preliminary Blood - Venous NO GROWTH AFTER 1 DAY Anaerobic Blood Culture - Preliminary NO GROWTH AFTER 1 DAY 05/09/18 15:25 Aerobic Blood Culture - Preliminary Blood NO GROWTH AFTER 3 DAYS Anaerobic Blood Culture - Preliminary Escherichia Coli 05/09/18 14:50 Aerobic Blood Culture - Preliminary Blood NO GROWTH AFTER 3 DAYS Anaerobic Blood Culture - Preliminary NO GROWTH AFTER 3 DAYS Med Orders - Current: Current Medications Acetaminophen (Tylenol) 650 mg PO Q4H PRN PRN Reason: Fever Last Admin: 05/11/18 18:19 Dose: 650 mg Docusate Sodium (Colace) 100 mg PO BID PRN PRN Reason: Constipation Last Admin: 05/13/18 09:13 Dose: 100 mg Hydromorphone HCl (Dilaudid) 2 mg PO Q3H PRN PRN Reason: Pain Last Admin: 05/11/18 17:40 Dose: 2 mg Sodium Chloride (Normal Saline) 1,000 mls @ 50 mls/hr IV ASDIRECTED [facility] Last Infusion: 05/13/18 01:22 Dose: 50 mls/hr Cefepime HCl 2 gm/ Premix 50 mls @ 100 mls/hr IV Q8H [facility] Last Admin: 05/13/18 09:57 Dose: 100 mls/hr Piperacillin Sod/Tazobactam (Sod 4.5 gm/ Sodium Chloride) 100 mls @ 25 mls/hr IV Q8H [facility] Last Admin: 05/13/18 05:04 Dose: 25 mls/hr Ibuprofen (Motrin) 600 mg PO Q6H PRN PRN Reason: Pain (mild 1-3) Last Admin: 05/13/18 09:13 Dose: 600 mg Magnesium Sulfate (Pharmacy To Dose - Magnesium Replacement) 0 dose .XX ASDIRECTED PRN PRN Reason: RX TO WATCH MAG LEVELS Ondansetron HCl (Zofran) 4 mg IVPUSH Q4H PRN PRN Reason: Nausea/Vomiting Potassium Chloride (Pharmacy To Dose - Potassium Replacement) 0 dose .XX ASDIRECTED PRN PRN Reason: RX TO WATCH K LEVELS Saccharomyces Boulardii (Florastor) 250 mg PO BID [facility] Last Admin: 05/13/18 09:13 Dose: 250 mg Discontinued Medications Acetaminophen (Tylenol) 975 mg PO NOW ONE Stop: 05/09/18 17:21 Last Admin: 05/09/18 17:30 Dose: 975 mg Acetaminophen (Tylenol) Confirm Administered Dose 975 mg .ROUTE .STK-MED ONE Stop: 05/09/18 17:23 Last Admin: 05/09/18 17:31 Dose: Not Given Ceftriaxone Sodium (Rocephin) Confirm Administered Dose 2 gm .ROUTE .STK-MED ONE Stop: 05/09/18 15:27 Last Admin: 05/09/18 15:33 Dose: Not Given Ceftriaxone Sodium (Rocephin) Confirm Administered Dose 2 gm IV .STK-MED ONE Stop: 05/09/18 15:30 Last Admin: 05/09/18 15:35 Dose: Not Given Gentamicin Sulfate (Gentamicin) Confirm Administered Dose 80 mg .ROUTE .STK-MED ONE Stop: 05/11/18 17:48 Last Admin: 05/11/18 18:15 Dose: Not Given Hydralazine HCl (Apresoline) 20 mg IVPUSH Q4H PRN PRN Reason: Hypertension Hydromorphone HCl (Dilaudid) 2 mg PO ONETIME PRN PRN Reason: Pain (moderate 4-6) Stop: 05/11/18 02:59 Last Admin: 05/10/18 13:22 Dose: 2 mg Sodium Chloride (Normal Saline) 1,000 mls @ 999 mls/hr IV ONETIME [facility] Last Admin: 05/09/18 15:35 Dose: 999 mls/hr Ceftriaxone Sodium 2 gm/ (Sodium Chloride) 100 mls @ 200 mls/hr IV ONETIME ONE Stop: 05/09/18 15:47 Last Admin: 05/09/18 15:33 Dose: Not Given Ceftriaxone Sodium 2 gm/ (Sodium Chloride) 100 mls @ 200 mls/hr IV Q24H [facility] Last Admin: 05/09/18 15:35 Dose: 200 mls/hr Sodium Chloride (Normal Saline) Confirm Administered Dose 100 mls @ as directed .ROUTE .STK-MED ONE Stop: 05/09/18 15:31 Last Admin: 05/09/18 15:35 Dose: Not Given Sodium Chloride (Normal Saline) 1,000 mls @ 999 mls/hr IV ONETIME [facility] Last Admin: 05/09/18 17:25 Dose: 999 mls/hr Sodium Chloride (Normal Saline) Confirm Administered Dose 1,000 mls @ as directed .ROUTE .STK-MED ONE Stop: 05/09/18 17:22 Last Admin: 05/09/18 17:28 Dose: Not Given Sodium Chloride (Normal Saline) 1,000 mls @ 999 mls/hr IV ONETIME ONE Stop: 05/09/18 19:00 Last Admin: 05/09/18 18:38 Dose: Not Given Ceftriaxone Sodium 1 gm/ (Sodium Chloride) 100 mls @ 200 mls/hr IV Q24H [facility] Ceftriaxone Sodium 2 gm/ (Sodium Chloride) 100 mls @ 200 mls/hr IV Q24H [facility] Last Admin: 05/10/18 15:27 Dose: 200 mls/hr Piperacillin Sod/Tazobactam (Sod 4.5 gm/ Sodium Chloride) 100 mls @ 200 mls/hr IV Q6H [facility] Gentamicin Sulfate 600 mg/ (Sodium Chloride) 115 mls @ 200 mls/hr IV ONETIME ONE Stop: 05/10/18 17:27 Last Admin: 05/10/18 18:15 Dose: 200 mls/hr Piperacillin Sod/Tazobactam (Sod 4.5 gm/ Sodium Chloride) 100 mls @ 200 mls/hr IV ONETIME ONE Stop: 05/10/18 18:29 Piperacillin Sod/Tazobactam (Sod 4.5 gm/ Sodium Chloride) 100 mls @ 25 mls/hr IV Q8H [facility] Gentamicin Sulfate 600 mg/ (Sodium Chloride) 115 mls @ 200 mls/hr IV ONETIME ONE Stop: 05/11/18 18:34 Last Admin: 05/11/18 18:08 Dose: 200 mls/hr Piperacillin Sod/Tazobactam (Sod 4.5 gm/ Sodium Chloride) 100 mls @ 200 mls/hr IV Q6H [facility] Last Admin: 05/11/18 22:34 Dose: Not Given Piperacillin Sod/Tazobactam (Sod 4.5 gm/ Sodium Chloride) 100 mls @ 200 mls/hr IV Q6H [facility] Last Admin: 05/12/18 05:12 Dose: 200 mls/hr Piperacillin Sod/Tazobactam (Sod 4.5 gm/ Sodium Chloride) 100 mls @ 200 mls/hr IV Q6H [facility] Last Admin: 05/13/18 01:15 Dose: Not Given Ibuprofen (Motrin) 600 mg PO Q6H PRN PRN Reason: Pain (mild 1-3) Iopamidol (Isovue-300 (61%)) 100 ml IVPUSH ONETIME ONE Stop: 05/11/18 19:07 Last Admin: 05/11/18 19:27 Dose: 100 ml Metoprolol Tartrate (Lopressor) 5 mg IVPUSH Q4H PRN PRN Reason: Tachycardia Phenazopyridine HCl (Urinary Pain Relief) 95 mg PO TIDPC [facility] Piperacillin Sod/Tazobactam Sod (Piperacil-Tazobact) Confirm Administered Dose 4.5 gm .ROUTE .STK-MED ONE Stop: 05/12/18 00:46 Last Admin: 05/12/18 00:56 Dose: Not Given Potassium Chloride (Klor-Con M20) 40 meq PO Q4H [facility] Stop: 05/12/18 01:31 Last Admin: 05/12/18 02:37 Dose: 40 meq
== END 2018-05-13 12:35 | disposition home or self-care (01) | DRG 776 ==
LOC: JD.ED 13:48 → JD.OB 17:30
PROVIDERS: ADMIT Obstetrics & Gynecology; ATTEND Obstetrics & Gynecology
DX: O86.21 Infection of kidney following delivery (principal); R78.81 Bacteremia; O90.89 Other complications of the puerperium, not elsewhere classified; B96.20 Unspecified Escherichia coli [E. coli] as the cause of diseases classified elsewhere
CPT/HCPCS: 36415; 71045; 71045-26; 74177; 74177-26; 80048; 80053; 81001; 83605; 83735; 84132; 85007; 85027; 86140; 87040; 87077; 87086; 87088; 87186; 87804; 96361; 96365; 99284; 99285-25; A9270-GY; J0692; J0696; J1580; J2543; J7030; J7040; Q9967